=== PATIENT | female | born 1990 | race Caucasian/White ===

== ENCOUNTER → 2017-06-17 12:39 | Outpatient (CLI) | payer OTHER, SELFPAY ==
--- NOTE | 2017-06-17 12:43 | US_ITS ---
US transvaginal HISTORY: Heavy cycles, dysfunctional uterine bleeding ITS.REASON: Heavy bleeding ORDERING PHYSICIAN: Anthony Willett MD PATIENT AGE: 26 years COMPARISON: None FINDINGS: UTERUS: The uterus measures 7 x 5 x 5 cm with a combined endometrial thickness of 5 mm. Uterus is retroverted.. No obvious uterine mass. The left ovary is 2.7 x 2.9 similar is a contained small follicles. Blood flow is present. The right ovary is 3 x 2 cm containing small follicles with blood flow noted. Small amount of cul-de-sac fluid is present. IMPRESSION: Retroverted uterus. Small bilateral ovarian follicles with a small amount of cul-de-sac fluid. Otherwise negative pelvic ultrasound
[2017-06-17 14:31] LABS: Basophils # 0.1 K/mm3 (0-0.2); Basophils % 0.6 % (0.1-2.0); Eosinophils # 0.1 K/mm3 (0.0-0.4); Eosinophils % 1.3 % (0.1-12.0); Hematocrit 44.7 % (37.0-47.0); Hemoglobin 14.9 g/dL (12.2-16.2); Lymphocytes # 3.1 K/mm3 (0.7-4.5); Lymphocytes % 28.3 K/mm3 (10-50); Mean Corpuscular HGB Conc 33.3 g/dL (31.8-35.4); Mean Corpuscular Hemoglobin 30.9 pg (27.0-31.2); Mean Platelet Volume 8.2 fl (7.4-10.4); Monocytes # 0.5 K/mm3 (0.1-1.0); Monocytes % 4.8 % (1.7-9.3); Neutrophils # 7.1 K/mm3 (1.8-7.8); Platelet Count 338 K/mm3 (142-424); Red Cell Distribution Width 15.2 % (11.5-17.5); White Blood Count 10.9 K/mm3 (4.8-10.8)
[2017-06-17 14:58] LABS: Urine Pregnancy, HCG Qual. Negative (Negative)
[2017-06-17 15:47] LABS: Free Thyroxine Index 2.1 ug/dL (5.93-13.13); T4 (Thyroxine) 6.7 ug/dl (4.7-13.3); Thyroid Stimulating Hormone 2.21 uIU/ml (0.358-3.740); Triiodothryronine (T3) Uptake 31 % (31-39)
== END ==
PROVIDERS: Family Provider Physician Assistant; PCP Physician Assistant; Visit Provider Nurse Practitioner Obstetrics & Gynecology
DX: N92.0 Excessive and frequent menstruation with regular cycle (principal)
CPT/HCPCS: 36415; 76830; 81025; 84436; 84443; 84479; 85025

== ENCOUNTER → 2017-07-13 10:15 | Outpatient (CLI) | payer OTHER, SELFPAY ==
[2017-07-13 11:12] LABS: Basophils # 0.1 K/mm3 (0-0.2); Basophils % 0.5 % (0.1-2.0); Eosinophils # 0.1 K/mm3 (0.0-0.4); Eosinophils % 1.2 % (0.1-12.0); Hemoglobin 13.9 g/dL (12.2-16.2); Lymphocytes # 2.8 K/mm3 (0.7-4.5); Lymphocytes % 29.8 K/mm3 (10-50); Mean Corpuscular HGB Conc 32.5 g/dL (31.8-35.4); Mean Corpuscular Hemoglobin 31.1 pg (27.0-31.2); Mean Corpuscular Volume 95.9 fl (81-99); Mean Platelet Volume 8.4 fl (7.4-10.4); Monocytes # 0.5 K/mm3 (0.1-1.0); Monocytes % 5.8 % (1.7-9.3); Neutrophils # 5.9 K/mm3 (1.8-7.8); Neutrophils % 62.6 % (37.0-80.0); Platelet Count 308 K/mm3 (142-424); Red Blood Count 4.48 M/mm3 (4.20-5.40); Red Cell Distribution Width 15.2 % (11.5-17.5); White Blood Count 9.4 K/mm3 (4.8-10.8)
[2017-07-13 11:14] LABS: Anion Gap 11.6 mEq/L (5-15); Blood Urea Nitrogen 9 mg/dL (7-18); Carbon Dioxide 23 mmol/L (21.0-32.0); Chloride 107 mmol/L (98-107); Creatinine,Serum 0.72 mg/dL (0.55-1.02); Estimated Glomerular Filt Rate 99 ml/min (>60); GFR (African American) 119 ML/MIN (>60); Glucose 85 mg/dL (74-106); Potassium 3.6 mmoL/L (3.5-5.1); Sodium 138 mmol/L (136-145)
[2017-07-13 12:40] LABS: HCG Qualitative, Serum Negative (Negative)
== END ==
PROVIDERS: Visit Provider Nurse Practitioner Obstetrics & Gynecology
DX: Z01.812 Encounter for preprocedural laboratory examination (principal); N92.0 Excessive and frequent menstruation with regular cycle
CPT/HCPCS: 36415; 80048; 84703; 85025

== ENCOUNTER 2017-07-16 06:37 | Day surgery (SDC) | payer OTHER, SELFPAY ==
[2017-07-16] VITALS (10 sets, daily range): BP systolic 108–122; BP diastolic 60–77; PULSE 57–69; RESP 16–20; TEMP 36.5–36.8; O2SAT 93–98; BMI 40.8
[2017-07-16 08:09] LABS: POC Glucose,Bedside 84 mg/dL (70-110)
--- NOTE | 2017-07-16 09:29 | HMH.OPNOTE ---
Date of procedure: 07/16/17 Pre-op Diagnosis:: Menorrhagia Post-op Diagnosis:: Menorrhagia Procedure performed:: Hysteroscopy, dilation and curettage, NovaSure ablation Surgeon:: Anthony Willett MD ALL AROUND PATTERNMAKER:: Jamil Albarado Anesthesia: LMA Estimated blood loss (mL): 50 Clinical Note:: She is a 26-year-old 2 para 2 who complains of extremely heavy periods. She had an ultrasound that appeared normal. She had an endometrial biopsy that was negative for hyperplasia or endometrial carcinoma. After having discussed the risks and benefits she elected to have a NovaSure ablation. Operative findings:: She had a bulky anteverted uterus. The endometrial cavity sounded to 9 cm. The endometrium appeared normal but lush. Both tubal ostia were seen and appeared normal. The endometrial cavity was 6.0 cm long and 4.5 cm wide. Operative note:: She was taken to the operating room where LMA anesthesia was found to be adequate. She was prepped and draped in the normal sterile fashion in the lithotomy position. A weighted speculum was placed vagina and the anterior lip of the cervix was grasped with a tenaculum. Gongora dilators used to dilate the cervix to approximately 6-7 mm. I then inserted a hysteroscope into the uterine cavity using saline as distending media. The findings were as previously dictated. I then performed a gentle curettage. The uterus was sounded and found to be 9 cm I found the length of the endometrial cavity itself to be 6 cm. I then placed the NovaSure device within the uterine cavity and it was found to be 4.5 cm wide. These findings were placed in the device. I ran the device through its program. I then further inspected the immature cavity and was seen to be completely charred. I injected 20 cc of 0.5% ropivacaine at the 3:00, 5:00, 7:00, and 9:00 positions of the cervix. The patient tolerated the procedure well and was taken to the recovery room in excellent condition. All sponge and needle counts were correct. The estimate blood loss was less than 50 cc. Condition: stable Disposition: PACU Specimens:: Endometrial curettings Complications:: None
--- NOTE | 2017-07-16 09:41 | P.PN_ITS ---
[facility] Anesthesia Record Part I Intake, IV Amount: 450 Estimated blood loss (mL): 50 Urine output (mL): 50 Blood Products used (#): none Blood Pressure: 115/74 SaO2: 93 Pulse Rate: 66 Respiratory Rate: 18 Temperature: 98.0 F Patient is:: Awake, Stable Stable to PACU at:: 09:40
--- NOTE | 2017-07-16 09:41 | HMH.ANESII ---
[facility] Anesthesia Record Part II Discharge Time: 10:10 Destination: Surgical Day Care (OP Surgery) PACU nurse assessment reviewed?: Yes Patient Condition:: Good Anesthesia Complications:: None
== END 2017-07-16 11:00 | disposition home or self-care (01) ==
LOC: OR 06:38
PROVIDERS: Family Provider Physician Assistant; PCP Physician Assistant; Visit Provider Nurse Practitioner Obstetrics & Gynecology
PROC: 0U5B8ZZ Destruction of Endometrium, Via Natural or Artificial Opening Endoscopic (ICD-10-PCS; CPT 58563; principal; 2017-07-16 08:30)
DX: N92.0 Excessive and frequent menstruation with regular cycle (principal)
CPT/HCPCS: 58558; 82962; 96374; J0131; J2405

== ENCOUNTER → 2019-04-28 12:50 | Outpatient (CLI) | payer OTHER, SELFPAY ==
[2019-04-28 13:18] LABS: Basophils % 0.5 % (0.1-2.0); Eosinophils # 0.2 K/mm3 (0.0-0.4); Eosinophils % 2.9 % (0.1-12.0); Hematocrit 42.7 % (37.0-47.0); Hemoglobin 14.1 g/dL (12.2-16.2); Lymphocytes # 2.5 K/mm3 (0.7-4.5); Lymphocytes % 29.5 % (10-50); Mean Corpuscular Hemoglobin 31.4 pg (27.0-31.2); Mean Corpuscular Volume 95.2 fl (81-99); Mean Platelet Volume 8.4 fl (7.4-10.4); Monocytes # 0.3 K/mm3 (0.1-1.0); Monocytes % 4.1 % (1.7-9.3); Neutrophils # 5.3 K/mm3 (1.8-7.8); Neutrophils % 63.1 % (37.0-80.0); Platelet Count 331 K/mm3 (142-424); Red Blood Count 4.49 M/mm3 (4.20-5.40); Red Cell Distribution Width 13.8 % (11.5-17.5); White Blood Count 8.4 K/mm3 (4.8-10.8)
[2019-04-28 14:00] LABS: Anion Gap 15.9 mEq/L (5-15); Blood Urea Nitrogen 6 mg/dL (7-18); Calcium 8.7 mg/dL (8.5-10.1); Carbon Dioxide 24 mmol/L (21.0-32.0); Chloride 105 mmol/L (98-107); Creatinine,Serum 0.71 mg/dL (0.55-1.02); Estimated Glomerular Filt Rate 99 ml/min (>60); GFR (African American) 119 ML/MIN (>60); Glucose 77 mg/dL (74-106); Potassium 3.9 mmoL/L (3.5-5.1); Sodium 141 mmol/L (136-145)
== END ==
PROVIDERS: Visit Provider Surgery
DX: L73.2 Hidradenitis suppurativa (principal)
CPT/HCPCS: 36415; 80048; 85025

== ENCOUNTER 2020-02-09 16:55 | Emergency (ER) | payer OTHER, SELFPAY ==
[2020-02-09 17:23] VITALS: BP 128/70; PULSE 90; RESP 14; TEMP 37; O2SAT 100; BMI 37.0
--- NOTE | 2020-02-09 17:54 | HMH.EDUTC ---
[facility] [place] Disposition Clinical Impression: Hidradenitis suppurativa, Abscess of left axilla Disposition: Home, Self-Care Condition on Discharge: Good Instructions: Boil Additional Instructions: Keep the wounds clean and dry. Follow up with your regular doctor. Take the antibiotics as directed and apply the topical antibiotics as directed. GO TO THE ER FOR ANY WORSENING SYMPTOMS Prescriptions: Ibuprofen [Ibuprofen 600mg Tablet] 600 mg PO Q6HP PRN #30 tab PRN Reason: Mild Pain Transmission Status: Received by [facility] Mupirocin [Bactroban 2% Ointment 22gm tube] 1 applicatio TP TID 7 Days #1 tube Transmission Status: Received by [facility] Doxycycline Hyclate [Doxycycline 100mg Capsule] 100 mg PO Q12 10 Days #20 cap Transmission Status: Received by [facility] Referrals: Fay Villegas APRN [Primary Care Provider] - Forms: Work/School Release Time of Disposition: 17:58 Medical Decision Making - Medical Records Medical records reviewed: No: I reviewed the patient's medical records. - Edgar Inquiry Pt receiving controlled substance: No Vital Signs: 02/09/20 17:23 02/09/20 18:07 Temperature 98.6 F 98.6 F Temperature Source Oral Oral Pulse Rate 90 Pulse Rate [Radial] 90 Respiratory Rate 14 14 Blood Pressure 128/70 Blood Pressure [Right Arm] 128/70 Blood Pressure Mean [Right Arm] 89 Blood Pressure Source Automatic Cuff Blood Pressure Source [Right Arm] Automatic Cuff Blood Pressure Position Sitting Blood Pressure Position [Right Arm] Sitting 02 Sat by Pulse Oximetry 100 Oxygen Delivery Method Room Air Room Air [facility] [place] HPI - General Stated complaint: boils/abcesses on legs and arm pits Time Seen by Provider: 02/09/20 17:35 Mode of Arrival: Ambulatory Source of Information: Patient Limitations: No Limitations Description of Symptoms (Recalled from Triage Doc. by RN): has hidrandenitis on each side of groin and under the left arm. keene for the last 3 days HEENT Symptoms (Recalled from RN notes): No Resp Symptoms (Recalled from RN notes): No Skin Symptoms (Recalled from RN notes): Yes MS Symptoms (Recalled from RN notes): No Functional Status (Recalled from RN notes): wnl - History of Present Illness Provider Complaint: She has a history of suppartive hydrenitis. For the past several day days she has been having swelling and pain of her left underarm. - Related Data Previous Rx's Medication Instructions Recorded Ibuprofen [Ibuprofen 600mg 600 mg PO Q6HP PRN #30 tab 07/01/19 Tablet] Methocarbamol [Robaxin 500mg Tab] 500 mg PO BIDP PRN #30 tab 07/01/19 cephALEXin [Keflex 500mg Cap] 500 mg PO Q6H 10 Days #40 cap 07/01/19 Doxycycline Hyclate [Doxycycline 100 mg PO Q12 10 Days #20 cap 02/09/20 100mg Capsule] Ibuprofen [Ibuprofen 600mg 600 mg PO Q6HP PRN #30 tab 02/09/20 Tablet] Mupirocin [Bactroban 2% Ointment 1 applicatio TP TID 7 Days #1 tube 02/09/20 22gm tube] Allergies Allergy/AdvReac Type Severity Reaction Status Date / Time propranolol [From INDERAL LA] Allergy Mild Verified 05/01/19 07:01 latex [LATEX] Allergy Unknown Verified 05/01/19 07:01 nickel [NICKEL] Allergy Unknown Verified 05/01/19 07:01 topiramate [TOPIRAMATE] Allergy Unknown I-HIVES Verified 05/01/19 07:01 tramadol [TRAMADOL] Allergy Unknown Verified 05/01/19 07:01 amoxicillin Allergy Verified 05/01/19 07:01 Penicillins Allergy Verified 05/01/19 07:01 - Worker's Comp Is this a Worker's Comp case?: No [facility] History - Hepatitis A Screen Drug use history?: No High risk sexual behaviors?: No History of sexually transmitted infection?: No Currently employed?: No Childcare worker?: No Do you have indoor plumbing?: Yes Do you have electricity?: Yes Attestation statement:: This patient has been screened for Hepatitis A risk factors. I have reviewed the patient's past medical history: Yes Medical History: Reports:: Alonzo
[2020-02-09 18:07] VITALS: BP 128/70; PULSE 90; RESP 14; TEMP 37; O2SAT 100
== END 2020-02-09 18:08 | disposition home or self-care (01) ==
PROVIDERS: Emergency Provider Nurse Practitioner Family; PCP Nurse Practitioner Family
DX: L02.412 Cutaneous abscess of left axilla (principal); L72.3 Sebaceous cyst; F33.1 Major depressive disorder, recurrent, moderate; E11.9 Type 2 diabetes mellitus without complications; G43.709 Chronic migraine without aura, not intractable, without status migrainosus; F17.210 Nicotine dependence, cigarettes, uncomplicated
CPT/HCPCS: 99201

== ENCOUNTER 2020-06-13 11:50 | Emergency (ER) | payer OTHER, SELFPAY ==
--- NOTE | 2020-06-13 12:06 | HMH.EDUTC ---
[facility] [place] Disposition Clinical Impression: Strep throat, Bronchitis Disposition: Home, Self-Care Condition on Discharge: Good Instructions: Strep Throat, DI for Strep Throat, DI for Acute Bronchitis Additional Instructions: Drink plenty of fluids. Take the medications as directed. Take tylenol or ibuprofen for pain or fever. Throw your tooth brush away and get a new one. Follow up with your regular doctor. GO TO THE ER FOR ANY WORSENING SYMPTOMS The cough medication (promethazine dm) will make you drowsy, so don't drive or operate heavy machinery after taking it. Prescriptions: Promethazine/Dextromethorphan [Promethazine-Dm Syrup] 5 ml PO Q6HP PRN #240 syrup PRN Reason: Cough Transmission Status: Received by [facility] clindamycin HCL [Clindamycin HCl] 300 mg PO Q8H 10 Days #30 cap Transmission Status: Received by [facility] Referrals: Fay Villegas APRN [Primary Care Provider] - Forms: Work/School Release Time of Disposition: 12:25 Medical Decision Making - Medical Records Medical records reviewed: No: I reviewed the patient's medical records. - Edgar Inquiry Pt receiving controlled substance: No Vital Signs: 06/13/20 12:09 06/13/20 12:30 Temperature 97.3 F L 97.3 F L Temperature Source Oral Pulse Rate 94 H Pulse Rate [Right Brachial] 94 H Respiratory Rate 14 14 Blood Pressure 124/52 L Blood Pressure [Right Arm] 124/52 L Blood Pressure Mean [Right Arm] 76 Blood Pressure Source [Right Arm] Automatic Cuff Blood Pressure Position [Right Arm] Sitting 02 Sat by Pulse Oximetry 96 Oxygen Delivery Method Room Air - Lab Data Lab results reviewed: Yes: I reviewed the patient's lab results. Lab Results 06/13/20 12:08: Strep Scn Rapid Clinic Positive A [facility] [place] HPI - General Stated complaint: headache,chills,fever,body aches,sore throat Time Seen by Provider: 06/13/20 12:07 - History of Present Illness Provider Complaint: She s/o sore throat, low grade fever, chills and feeling bad for the past 2 days. She works at a residential. She was last tested for covid yesterday evening and it was negative. She gets tested for covid twice per week regularly for her job anyway. - Related Data Previous Rx's Medication Instructions Recorded Ibuprofen [Ibuprofen 600mg 600 mg PO Q6HP PRN #30 tab 07/01/19 Tablet] Methocarbamol [Robaxin 500mg Tab] 500 mg PO BIDP PRN #30 tab 07/01/19 cephALEXin [Keflex 500mg Cap] 500 mg PO Q6H 10 Days #40 cap 07/01/19 Doxycycline Hyclate [Doxycycline 100 mg PO Q12 10 Days #20 cap 02/09/20 100mg Capsule] Ibuprofen [Ibuprofen 600mg 600 mg PO Q6HP PRN #30 tab 02/09/20 Tablet] Mupirocin [Bactroban 2% Ointment 1 applicatio TP TID 7 Days #1 tube 02/09/20 22gm tube] Promethazine/Dextromethorphan 5 ml PO Q6HP PRN #240 syrup 06/13/20 [Promethazine-Dm Syrup] clindamycin HCL [Clindamycin HCl] 300 mg PO Q8H 10 Days #30 cap 06/13/20 Allergies Allergy/AdvReac Type Severity Reaction Status Date / Time propranolol [From INDERAL LA] Allergy Mild Verified 05/01/19 07:01 latex [LATEX] Allergy Unknown Verified 05/01/19 07:01 nickel [NICKEL] Allergy Unknown Verified 05/01/19 07:01 topiramate [TOPIRAMATE] Allergy Unknown I-HIVES Verified 05/01/19 07:01 tramadol [TRAMADOL] Allergy Unknown Verified 05/01/19 07:01 amoxicillin Allergy Verified 05/01/19 07:01 Penicillins Allergy Verified 05/01/19 07:01 [facility] History - Hepatitis A Screen Attestation statement:: This patient has been screened for Hepatitis A risk factors. I have reviewed the patient's past medical history: Yes Medical History: Reports:: Depression, Diabetes Mellitus Type 1, Diabetes Mellitus Type 2, Migraine Denies:: Cancer, Internal Pacemaker, MRSA, Seizures Other Medical History: Denies: Blood Transfusion Reaction Laterality Cases: Bilateral: Tonsillectomy, Total Hip Replacement Other Surgeries: Yes: , Tubal Ligation,
[2020-06-13 12:09] VITALS: BP 124/52; PULSE 94; RESP 14; TEMP 36.3; O2SAT 96; BMI 37.5
[2020-06-13 12:29] LABS: UTC Strep Screen (Rapid) Positive (Negative)
[2020-06-13 12:30] VITALS: BP 124/52; PULSE 94; RESP 14; TEMP 36.3; O2SAT 96
== END 2020-06-13 12:33 | disposition home or self-care (01) ==
PROVIDERS: Emergency Provider Nurse Practitioner Family; PCP Nurse Practitioner Family
DX: J02.0 Streptococcal pharyngitis (principal); J40 Bronchitis, not specified as acute or chronic
CPT/HCPCS: 87880; 99202; G0463

== ENCOUNTER 2020-06-16 12:17 | Emergency (ER) | payer OTHER, SELFPAY ==
[2020-06-16 12:20] VITALS: BP 103/71; PULSE 91; RESP 19; TEMP 36.8; O2SAT 98; BMI 37.5
[2020-06-16 13:01] VITALS: BP 103/71; PULSE 91; RESP 19; TEMP 36.8; O2SAT 98
--- NOTE | 2020-06-16 13:05 | HMH.EDUTC ---
[facility] [place] Disposition Clinical Impression: Upper respiratory infection, viral, Exposure to COVID-19 virus Disposition: Home, Self-Care Condition on Discharge: Good Instructions: DI for COVID-19 (Suspected or Confirmed ), How to Care for Someone with COVID-19, Preventing the Spread of Coronavirus Discharge Instructions, COVID-19: Testing and Tracing Additional Instructions: No sign of a bacterial infection. Likely viral. Viruses can take 7-14 days to run their course. Nasal saline and bulb syringe or nose Zoë to remove nasal drainage to help with nasal congestion. Hard to eat, drink, sleep with nasal congestion so important to keep this cleaned out. Monitor temp. Tylenol or Motrin as needed for pain or fever Encourage fluids, water, Gatorade, Powerade, Pedialyte if infant/toddler/child Warm salt water gargles Warm fluids Sore throat lozenges Sleep elevated Humidifier/vaporizer Your covid swab was sent. self isolate until test results are known to be neg Follow-up immediately for new or worsening symptoms or no noticeable improvement over the next 48-72 hours. Referrals: Fay Villegas APRN [Primary Care Provider] - Forms: Work/School Release Time of Disposition: 13:09 Medical Decision Making - Edgar Inquiry Pt receiving controlled substance: No Vital Signs: 06/16/20 12:20 06/16/20 13:01 Temperature 98.2 F 98.2 F Temperature Source Oral Pulse Rate 91 H Pulse Rate [Right Brachial] 91 H Respiratory Rate 19 19 Blood Pressure 103/71 L Blood Pressure [Right Arm] 103/71 L Blood Pressure Mean [Right Arm] 81 Blood Pressure Source [Right Arm] Automatic Cuff Blood Pressure Position [Right Arm] Sitting 02 Sat by Pulse Oximetry 98 Oxygen Delivery Method Room Air Orders (Tests/Meds): ORDERS Category Date Time Status Covid-19 Nasal PCR ([facility]) Routine Lab 06/16/20 12:20 Ordered [facility] [place] HPI - General Chief complaint: [facility] Stated complaint: covid test Time Seen by Provider: 06/16/20 13:05 Mode of Arrival: Ambulatory Source of Information: Patient Limitations: No Limitations Description of Symptoms (Recalled from Triage Doc. by RN): COVID TEST D/T EXPOSURE. C/O LOSS OF TASTE/SMELL, SORE THROAT, COUGH HEENT Symptoms (Recalled from RN notes): Yes Resp Symptoms (Recalled from RN notes): Yes Skin Symptoms (Recalled from RN notes): No MS Symptoms (Recalled from RN notes): No Functional Status (Recalled from RN notes): WNL - History of Present Illness Provider Complaint: 29 yr old female presents for cough,low grade fever, body aches,chills,loss of taste and smell and runny nose for 2 days. pt states she was exposed to someone with covid 3 days ago. - Related Data Previous Rx's Medication Instructions Recorded Ibuprofen [Ibuprofen 600mg 600 mg PO Q6HP PRN #30 tab 07/01/19 Tablet] Methocarbamol [Robaxin 500mg Tab] 500 mg PO BIDP PRN #30 tab 07/01/19 cephALEXin [Keflex 500mg Cap] 500 mg PO Q6H 10 Days #40 cap 07/01/19 Doxycycline Hyclate [Doxycycline 100 mg PO Q12 10 Days #20 cap 02/09/20 100mg Capsule] Ibuprofen [Ibuprofen 600mg 600 mg PO Q6HP PRN #30 tab 02/09/20 Tablet] Mupirocin [Bactroban 2% Ointment 1 applicatio TP TID 7 Days #1 tube 02/09/20 22gm tube] Promethazine/Dextromethorphan 5 ml PO Q6HP PRN #240 syrup 06/13/20 [Promethazine-Dm Syrup] clindamycin HCL [Clindamycin HCl] 300 mg PO Q8H 10 Days #30 cap 06/13/20 Allergies Allergy/AdvReac Type Severity Reaction Status Date / Time propranolol [From INDERAL LA] Allergy Mild Verified 05/01/19 07:01 latex [LATEX] Allergy Unknown Verified 05/01/19 07:01 nickel [NICKEL] Allergy Unknown Verified 05/01/19 07:01 topiramate [TOPIRAMATE] Allergy Unknown I-HIVES Verified 05/01/19 07:01 tramadol [TRAMADOL] Allergy Unknown Verified 05/01/19 07:01 amoxicillin Allergy Verified 05/01/19 07:01 Penicillins Allergy Verified 05/01/19 07:01 - Worker's Comp Is this a Worker's Comp case?: No
--- NOTE | 2020-06-16 20:00 | PC.NURSE ---
PT NOTIFIED OF POSITIVE COVID RESULTS
== END 2020-06-16 13:15 | disposition home or self-care (01) ==
PROVIDERS: Emergency Provider Nurse Practitioner Family; PCP Nurse Practitioner Family
DX: U07.1 COVID-19 (principal); E10.9 Type 1 diabetes mellitus without complications; F33.1 Major depressive disorder, recurrent, moderate; G43.709 Chronic migraine without aura, not intractable, without status migrainosus; F17.210 Nicotine dependence, cigarettes, uncomplicated; F12.10 Cannabis abuse, uncomplicated; Z79.899 Other long term (current) drug therapy
CPT/HCPCS: 99202; G0463; U0003

== ENCOUNTER 2020-08-26 16:05 | Emergency (ER) | payer OTHER, SELFPAY ==
[2020-08-26 16:06] VITALS: BP 131/76; PULSE 98; RESP 18; TEMP 36.8; O2SAT 98; BMI 37.0
--- NOTE | 2020-08-26 16:10 | HMH.EDGENADL ---
ED Disposition Clinical Impression: Hidradenitis suppurativa Disposition: Home, Self-Care Condition on Discharge: Good Additional Instructions: Take [place] for breakthrough pain only. Do not operate heavy machinery or drink alcohol taking this medicine. Please call surgery office tomorrow to make an appointment for soon as possible. Return if any worsening rash, fever/chills, generalized malaise, nausea/vomiting, or other new concerning symptoms. Prescriptions: Hydrocod/Acet 5/325 mg [[place] 5/325mg tablet] 1 tab PO Q6HP PRN #12 tab PRN Reason: Breakthru Severe Pain Transmission Status: Sent to [facility] Referrals: Fay Villegas APRN [Primary Care Provider] - - Critical Care Critical Care Time: No Attestation: On , the high probability of a clinically significant, sudden or life threatening deterioration of the following system(s) required my full and direct attention, intervention and personal management. The time I documented below is in addition to time spent performing reported procedures but includes the following listed in this critical care notation. Medical Decision Making - Medical Records Medical records reviewed: Yes: I reviewed the patient's medical records. - Edgar Inquiry Pt receiving controlled substance: Yes Edgar was queried for this patient: Yes Reference #:: [id number] Risks and benefits of using a controlled substance: were discussed with pt by me Vital Signs: 08/26/20 16:06 Temperature 98.3 F Temperature Source Oral Pulse Rate [Left Radial] 98 H Respiratory Rate 18 Blood Pressure [Right Arm] 131/76 Blood Pressure Mean [Right Arm] 94 Blood Pressure Source [Right Arm] Automatic Cuff Blood Pressure Position [Right Arm] Sitting 02 Sat by Pulse Oximetry 98 Oxygen Delivery Method Room Air - Lab Data Lab Results 08/26/20 17:40: WBC 11.4 H, RBC 4.24, Hgb 12.8, Hct 39.4, MCV 93.0, MCH 30.1, MCHC 32.4, RDW 14.6, Plt Count 345, MPV 8.0, Neut % (Auto) 72.6, Lymph % (Auto) 20.0, Jasper % (Auto) 5.2, Eos % (Auto) 1.6, Baso % (Auto) 0.5, Neut # (Auto) 8.3 H, Lymph # (Auto) 2.3, Jasper # (Auto) 0.6, Eos # (Auto) 0.2, Baso # (Auto) 0.1 08/26/20 17:40: Sodium 137, Potassium 3.8, Chloride 108 H, Carbon Dioxide 21 L, Anion Gap 11.8, BUN 12, Creatinine 0.50 L, Estimated Creat Clear 228, Estimated GFR 147, Est GFR ( Amer) 178, Glucose 94, Calcium 9.1, Total Bilirubin 0.3, AST 20, ALT 17, Alkaline Phosphatase 72, C-Reactive Protein 45.2 H, Total Protein 7.7, Albumin 4.1, Globulin 3.6 H, Albumin/Globulin Ratio 1.1 Result diagrams: 08/26/20 17:40 08/26/20 17:40 Orders (Tests/Meds): ED MEDICATIONS Discontinued Medications Generic Name Dose Route Start Last Admin Trade Name Freq PRN Reason Stop Dose Admin Hydrocodone Bitart/Acetaminophen 1 tab 08/26/20 17:33 08/26/20 17:40 Hydrocodone/Apap 5/325 Mg Tablet PO 08/26/20 17:34 1 tab ONCE ONE Administration Medical Decision Narrative: Patient presents to the emergency department with hidradenitis. She already is on p.o. clindamycin. Work-up initiated to ensure significantly elevated white count. White count 11,000. Patient given [place] for pain. I am concerned the patient has extensive hidradenitis and the risks involved with I&D in the ER. She may require excision and extensive unroofing in a more controlled environment. Did reach out to on-call surgeon, Dr. Peres. After careful discussion, plan for patient be discharged on short course of [place] made and she will call tomorrow morning to make an appointment by the end of the week for further management. Patient seems pleased with this plan. Patient discharged in stable condition with instructions not to operate heavy machinery or drink alcohol while taking pain medicine and to immediately report back to emergency department if worsening hidradenitis, fever/chills, systemic signs of illness, generalized malaise, nausea/vomiting, other new concerning symptoms
[2020-08-26 17:56] LABS: Basophils # 0.1 K/mm3 (0-0.2); Basophils % 0.5 % (0.1-2.0); Eosinophils # 0.2 K/mm3 (0.0-0.4); Eosinophils % 1.6 % (0.1-12.0); Hematocrit 39.4 % (37.0-47.0); Hemoglobin 12.8 g/dL (12.2-16.2); Lymphocytes # 2.3 K/mm3 (0.7-4.5); Mean Corpuscular HGB Conc 32.4 g/dL (31.8-35.4); Mean Corpuscular Hemoglobin 30.1 pg (27.0-31.2); Monocytes # 0.6 K/mm3 (0.1-1.0); Monocytes % 5.2 % (1.7-9.3); Neutrophils # 8.3 K/mm3 (1.8-7.8); Neutrophils % 72.6 % (37.0-80.0); Platelet Count 345 K/mm3 (142-424); Red Blood Count 4.24 M/mm3 (4.20-5.40); Red Cell Distribution Width 14.6 % (11.5-17.5); White Blood Count 11.4 K/mm3 (4.8-10.8)
[2020-08-26 18:01] LABS: Chloride 108 mmol/L (98-107); Potassium 3.8 mmoL/L (3.5-5.1); Sodium 137 mmol/L (136-145)
[2020-08-26 18:04] LABS: Alanine Aminotransferase 17 U/L (12-78); Albumin Level 4.1 g/dl (3.5-5.0); Albumin/Globulin Ratio 1.1 (1.1-1.8); Alkaline Phosphatase 72 U/L (38-126); Anion Gap 11.8 mEq/L (5-15); Aspartate Amino Transferase 20 U/L (14-36); Bilirubin,Total 0.3 mg/dl (0.2-1.3); Blood Urea Nitrogen 12 mg/dl (7-17); Carbon Dioxide 21 mmol/L (22.0-30.0); Creatinine Clearance Estimated 228 mL/min (50-200); Estimated Glomerular Filt Rate 147 ml/min (>60); GFR (African American) 178 ML/MIN (>60); Globulin 3.6 g/dL (1.3-3.2); Total Protein,Serum 7.7 g/dl (6.3-8.2)
[2020-08-26 18:05] LABS: Calcium 9.1 mg/dl (8.4-10.2); Glucose 94 mg/dl (74-100)
[2020-08-26 18:10] LABS: C-Reactive Protein 45.2 mg/L (0-4)
[2020-08-26 18:56] VITALS: BP 127/70; PULSE 93; RESP 18; TEMP 36.8; O2SAT 96
== END 2020-08-26 18:56 | disposition home or self-care (01) ==
PROVIDERS: Emergency Provider Emergency Medicine; PCP Nurse Practitioner Family
DX: L73.2 Hidradenitis suppurativa (principal); E10.9 Type 1 diabetes mellitus without complications; F33.1 Major depressive disorder, recurrent, moderate; G43.709 Chronic migraine without aura, not intractable, without status migrainosus; Z91.040 Latex allergy status; F17.210 Nicotine dependence, cigarettes, uncomplicated; F12.10 Cannabis abuse, uncomplicated; Z88.0 Allergy status to penicillin; Z88.8 Allergy status to other drugs, medicaments and biological substances; Z79.899 Other long term (current) drug therapy
CPT/HCPCS: 36415; 80053; 85025; 86140; 99282

== ENCOUNTER → 2020-08-28 15:14 | Outpatient (CLI) | payer OTHER, SELFPAY ==
[2020-08-28 15:54] LABS: Urine Pregnancy, HCG Qual. Negative (Negative)
[2020-08-28 16:41] LABS: Coronavirus 19 IgG Antibody Positive (Negative); Coronavirus 19 IgM Antibody Negative (Negative)
== END ==
PROVIDERS: Visit Provider Surgery
DX: Z01.812 Encounter for preprocedural laboratory examination (principal); Z20.822 Contact with and (suspected) exposure to COVID-19; L73.2 Hidradenitis suppurativa
CPT/HCPCS: 36415; 81025; 86328

== ENCOUNTER 2020-08-29 10:46 | Day surgery (SDC) | payer OTHER, SELFPAY ==
[2020-08-29] VITALS (10 sets, daily range): BP systolic 103–137; BP diastolic 67–87; PULSE 86–95; RESP 14–20; TEMP 36–36.8; O2SAT 92–99; BMI 42.7
[2020-08-29 11:23] LABS: POC Glucose,Bedside 79 (70-110)
--- NOTE | 2020-08-29 11:52 | P.PN_ITS ---
[facility] Anesthesia Checklist - Patient Identification Patient Identification: Arm Band - Structural Data Admitted From: Home Planned Operative Procedure/s: I & D left thigh abscess Consent for Planned Operative Procedure(s) Verified: Yes - NPO Status Verified Time NPO: 00:00 - Additional verifications Anesthesia Reactions: Yes (PT STATES SHE HAS A HARD TIME WAKING UP FROM ANETHEISA) Hx Blood Transfusions: No Blood Transfusion Reaction: No - Airway Assessment C-Spine Mobility Assessed: Yes TMJ Mobility Assessed: Yes Dentition: Good Dentition - Neurological Assessment Level of Consciousness: Awake, Alert Hx Seizures: No Numbness or tingling in extremities: No - Anesthesia Plan Anesthesia Risk discussed: Yes Anesthesia Plan: Verified ASA Class: III Anesthesia Type: General [facility] History I have reviewed the patient's past medical history: Yes Medical History: Reports:: Depression, Diabetes Mellitus Type 2, Migraine Denies:: Cancer, Diabetes Mellitus Type 1, Internal Pacemaker, MRSA, Seizures *Have you ever received a pneumonia vaccine?: No *Have you received a flu vaccine this season?: Yes Other Medical History: Denies: Blood Transfusion Reaction Anesthesia experience/problems:: Difficulty waking up Laterality Cases: Bilateral: Myringotomy (Ear Tubes), Tonsillectomy, Total Hip Replacement Other Surgeries: Yes: , Tubal Ligation, Other. No: Pacemaker Amputation: No Fractures: Yes (RIGHT FOOT, LEFT FOOT, 2 FINGERS LEFT HAND) - *Social History Last grade of school completed: 11th or 12th Smoking Status: Current every day smoker Tobacco Type: cigarettes # Packs/Day (cigarettes): 1 Alcohol Intake: never Substance Use Type: marijuana *Occupational Status:: other Housing: house Household Members: significant other *Travel in the last 8 weeks: None - Psychiatric History Pschychiatric History:: Reports:: Depression Family Hx:: Cancer, Diabetes, Heart Attack, Hyperlipidemia, Hypertension [employer] COUNTER MANAGER history: Tubal Ligation, Abnormal Uterine Bleeding
--- NOTE | 2020-08-29 12:16 | P.PN_ITS ---
[facility] Anesthesia Record Part I Intake, IV Amount: 350 Estimated blood loss (mL): 0 Urine output (mL): 0 Blood Pressure: 122/70 SaO2: 92 Pulse Rate: 87 Respiratory Rate: 14 Temperature: 97.8 F Patient is:: Drowsy, Oral/Nasal airway Stable to PACU at:: 12:14
--- NOTE | 2020-08-29 12:16 | HMH.OPNOTE ---
Date of procedure: 08/29/20 Pre-op Diagnosis:: Left medial thigh abscessed hidradenitis Post-op Diagnosis:: Bilateral medial thigh abscessed hidradenitis Procedure performed:: Incision and drainage of bilateral medial thigh abscesses (abscessed hidradenitis) Surgeon:: Hong Locke MD Anesthesia: LMA Estimated blood loss (mL): 15 Operative findings:: Bilateral medial thigh abscesses at site of hidradenitis Operative note:: After informed consent was obtained the patient was taken to the operating room placed in the supine position. General anesthesia was induced and she was then transferred to a modified frog-leg position . Her bilateral thighs were prepped and draped in a sterile fashion. The central portion of the left medial thigh abscess was opened with electrocautery. Fluid was obtained for Gram stain/culture. The fluid was notably cloudy. The central portion of the lesion was then excised through the subcutaneous tissue utilizing electrocautery. The tissue was passed off for pathologic evaluation. The wound was fully evacuated and packed with moistened Kerlix. Essentially, the same procedure was then completed on the right. 1% lidocaine was infiltrated into the Kerlix and dressings were applied. The patient was then transferred to recovery in stable condition after removal of her laryngeal mask airway. Condition: stable Disposition: PACU Specimens:: Fluid for Gram stain/culture (left medial thigh abscess) Abscessed hidradenitis tissue (left medial thigh) Complications:: No immediate
--- NOTE | 2020-08-29 12:23 | SUR.PREOP ---
1145- per Dr. Locke as discussed with patient in pre-op, MD made decision to do I/D of right thigh abscess as well as planned procedure on left thigh. Discussed with family who also acknowledged patient desire to have abscess drained on right thigh, consent witnessed to that effect.
[2020-08-29 12:44] LABS: POC Glucose,Bedside 84 (70-110)
--- NOTE | 2020-08-30 11:24 | P.PN_ITS ---
[facility] Anesthesia Record Part II Discharge Time: 12:54 Destination: Surgical Day Care (OP Surgery) PACU nurse assessment reviewed?: Yes Patient Condition:: Good Anesthesia Complications:: None Swallowing reflex intact?: Yes Cyanosis?: No Blood Pressure: 136/87 Pulse Rate: 86 Temperature: 97.7 F Mental Status: Alert & Oriented Pain level:: 6 Nausea and/or vomitting:: None Intake, IV Amount: 0
[2020-08-30 11:25] VITALS: BP 136/87; PULSE 86; TEMP 36.5
== END 2020-08-29 13:30 | disposition home or self-care (01) ==
LOC: OR 10:48
PROVIDERS: PCP Nurse Practitioner Family; Visit Provider Surgery
PROC: (CPT 10061; principal; 2020-08-29 12:30)
DX: L73.2 Hidradenitis suppurativa (principal); L02.416 Cutaneous abscess of left lower limb; E11.9 Type 2 diabetes mellitus without complications; F32.9 Major depressive disorder, single episode, unspecified; G43.909 Migraine, unspecified, not intractable, without status migrainosus; Z87.39 Personal history of other diseases of the musculoskeletal system and connective tissue; Z72.0 Tobacco use; Z80.9 Family history of malignant neoplasm, unspecified; Z83.3 Family history of diabetes mellitus; Z82.3 Family history of stroke; Z82.49 Family history of ischemic heart disease and other diseases of the circulatory system; Z83.438 Family history of other disorder of lipoprotein metabolism and other lipidemia
CPT/HCPCS: 10061; 82962; 87070; 87075; 87205; 96374

== ENCOUNTER → 2020-09-04 15:44 | Outpatient (CLI) | payer OTHER, SELFPAY ==
[2020-09-04 16:23] LABS: Urine Pregnancy, HCG Qual. Negative (Negative)
[2020-09-04 16:54] LABS: Coronavirus 19 IgG Antibody Positive (Negative); Coronavirus 19 IgM Antibody Negative (Negative)
== END ==
PROVIDERS: Visit Provider Surgery
DX: Z01.818 Encounter for other preprocedural examination (principal); Z20.822 Contact with and (suspected) exposure to COVID-19; L73.2 Hidradenitis suppurativa
CPT/HCPCS: 36415; 81025; 86328

== ENCOUNTER 2020-09-05 06:09 | Day surgery (SDC) | payer OTHER, SELFPAY ==
[2020-09-04 16:04] VITALS: BMI 43.0
[2020-09-05] VITALS (9 sets, daily range): BP systolic 123–135; BP diastolic 78–88; PULSE 72–99; RESP 16–19; TEMP 36.1–37.1; O2SAT 93–99
--- NOTE | 2020-09-05 06:25 | PC.NURSE ---
Bilateral groin dressing from surgery last week
[2020-09-05 07:58] LABS: POC Glucose,Bedside 103 (70-110)
--- NOTE | 2020-09-05 07:59 | HMH.OPNOTE ---
Date of procedure: 09/05/20 Pre-op Diagnosis:: Left axillary hidradenitis with associated abscess Post-op Diagnosis:: Same Procedure performed:: Incision and drainage/debridement of left axillary hidradenitis with abscess Surgeon:: Hong Locke MD Anesthesia: LMA Estimated blood loss (mL): 10 Operative findings:: Inflamed hidradenitis with small associated abscess Operative note:: After informed consent was obtained the patient was taken to the operating room and placed in the supine position. General anesthesia with laryngeal mask airway was achieved. Her left axilla was prepped and draped in a sterile fashion. After infiltration with local anesthetic an incision around the inflamed hidradenitis was made with electrocautery. The deep subcutaneous tissue was dissected with electrocautery. An ellipse of tissue was excised and passed off for pathologic evaluation. A small associated abscess was noted within the margin of the tissue. Electrocautery was utilized to achieve hemostasis. The wound was partially closed with interrupted 4-0 nylon. The posterior margin was left open for packing. The wound was packed with moistened Kerlix and the entire region was infiltrated with 1% lidocaine. Dressings were applied and the patient was transferred to recovery after removal of her laryngeal mask airway. Condition: stable Disposition: PACU Specimens:: Left axillary hidradenitis Complications:: No immediate
--- NOTE | 2020-09-05 10:12 | HMH.ANESCL ---
[facility] Anesthesia Checklist - Patient Identification Patient Identification: Arm Band - Structural Data Admitted From: Home Planned Operative Procedure/s: I & D left axilla Consent for Planned Operative Procedure(s) Verified: Yes Verified Documents: Surgical Consent, History and Physical - Additional verifications Anesthesia Reactions: Yes (PT STATES SHE HAS A HARD TIME WAKING UP FROM ANETHEISA) Hx Blood Transfusions: No Blood Transfusion Reaction: No - Anesthesia Plan Anesthesia Risk discussed: Yes Anesthesia Plan: Verified ASA Class: III Anesthesia Type: General [facility] History Medical History: Reports:: Depression, Diabetes Mellitus Type 2, Migraine Denies:: Cancer, Diabetes Mellitus Type 1, Internal Pacemaker, MRSA, Seizures *Have you ever received a pneumonia vaccine?: No *Have you received a flu vaccine this season?: Yes Other Medical History: Denies: Blood Transfusion Reaction Anesthesia experience/problems:: None Laterality Cases: Bilateral: Myringotomy (Ear Tubes), Tonsillectomy, Total Hip Replacement Other Surgeries: Yes: , Tubal Ligation, Other. No: Pacemaker Amputation: No Fractures: Yes (RIGHT FOOT, LEFT FOOT, 2 FINGERS LEFT HAND) - *Social History Last grade of school completed: High school graduate Smoking Status: Current every day smoker Tobacco Type: cigarettes # Packs/Day (cigarettes): 1 Alcohol Intake: never Substance Use Type: marijuana *Occupational Status:: employed Housing: house Household Members: significant other, family *Travel in the last 8 weeks: None - Psychiatric History Pschychiatric History:: Reports:: Depression Family Hx:: Cancer, Diabetes, Heart Attack, Hyperlipidemia, Hypertension [employer] history: Tubal Ligation, Abnormal Uterine Bleeding
--- NOTE | 2020-09-05 10:15 | HMH.ANESI ---
[facility] Anesthesia Record Part I Intake, IV Amount: 500 Estimated blood loss (mL): 2 Urine output (mL): 0 Blood Pressure: 123/87 SaO2: 93 Pulse Rate: 99 Respiratory Rate: 19 Temperature: 98.8 F Patient is:: Awake, Drowsy Stable to PACU at:: 07:51
[2020-09-05 12:04] LABS: POC Glucose,Bedside 88 (70-110)
[2020-09-09 08:36] VITALS: BP 133/86; PULSE 72; TEMP 36.8
--- NOTE | 2020-09-09 08:36 | P.PN_ITS ---
[facility] Anesthesia Record Part II Discharge Time: 08:11 Destination: Surgical Day Care (OP Surgery) PACU nurse assessment reviewed?: Yes Patient Condition:: Good Anesthesia Complications:: None Swallowing reflex intact?: Yes Cyanosis?: No Blood Pressure: 133/86 Pulse Rate: 72 Temperature: 98.3 F Mental Status: Alert & Oriented Pain level:: 4 Nausea and/or vomitting:: None Intake, IV Amount: 0
== END 2020-09-05 08:41 | disposition home or self-care (01) ==
LOC: OR 06:09
PROVIDERS: PCP Nurse Practitioner Family; Visit Provider Surgery
PROC: (CPT 10061; principal; 2020-09-05 07:00)
DX: L73.2 Hidradenitis suppurativa (principal); L02.412 Cutaneous abscess of left axilla; F32.9 Major depressive disorder, single episode, unspecified; E11.9 Type 2 diabetes mellitus without complications; G43.909 Migraine, unspecified, not intractable, without status migrainosus; Z72.0 Tobacco use; F12.90 Cannabis use, unspecified, uncomplicated; Z79.84 Long term (current) use of oral hypoglycemic drugs; Z79.899 Other long term (current) drug therapy; Z88.1 Allergy status to other antibiotic agents; Z91.040 Latex allergy status; Z88.0 Allergy status to penicillin; Z88.8 Allergy status to other drugs, medicaments and biological substances; Z91.048 Other nonmedicinal substance allergy status
CPT/HCPCS: 10061; 82962; 96374; J2405

== ENCOUNTER → 2020-09-25 13:45 | Outpatient (CLI) | payer OTHER, SELFPAY ==
[2020-09-25 14:38] LABS: Urine Pregnancy, HCG Qual. Negative (Negative)
== END ==
PROVIDERS: Visit Provider Surgery
DX: Z01.812 Encounter for preprocedural laboratory examination (principal); Z11.52 Encounter for screening for COVID-19; L73.2 Hidradenitis suppurativa
CPT/HCPCS: 81025; U0003

== ENCOUNTER 2020-09-27 06:27 | Day surgery (SDC) | payer OTHER, SELFPAY ==
[2020-09-27] VITALS (14 sets, daily range): BP systolic 105–130; BP diastolic 61–81; PULSE 66–86; RESP 17–20; TEMP 36.1–36.4; O2SAT 94–98; BMI 37.5
--- NOTE | 2020-09-27 08:33 | HMH.OPNOTE ---
Date of procedure: 09/27/20 Pre-op Diagnosis:: Right perianal/medial buttock abscess (abscessed hidradenitis) Post-op Diagnosis:: Same Procedure performed:: Excision of abscessed hidradenitis from right perianal region Surgeon:: Hong Locke MD Anesthesia: LMA Estimated blood loss (mL): 10 Operative findings:: Firm right perianal/medial buttock indurated lesion consistent with abscessed hidradenitis Operative note:: After informed consent was obtained the patient was taken to the operating room and placed in the supine position. General anesthesia with laryngeal mask airway was achieved. She was transferred to a modified lithotomy position. The right perianal lesion showed changes consistent with hidradenitis/abscess. Significant induration noted. The lesion was carefully elevated and excised with electrocautery. It was passed off for pathologic evaluation. The remaining wound was packed open with gauze. The entire region was infiltrated with 1% lidocaine. Dressings were applied and the patient was transferred to recovery in stable condition. Condition: stable Disposition: PACU Specimens:: Right perianal abscessed hidradenitis Complications:: No immediate
--- NOTE | 2020-09-27 08:42 | HMH.ANESI ---
[facility] Anesthesia Record Part I Intake, IV Amount: 900 Estimated blood loss (mL): 10 Urine output (mL): 0 Blood Pressure: 124/81 SaO2: 98 Pulse Rate: 71 Respiratory Rate: 17 Temperature: 97.2 F Patient is:: Drowsy, Oral/Nasal airway Stable to PACU at:: 08:40
[2020-09-27 09:22] LABS: POC Glucose,Bedside 90 (70-110)
[2020-09-28 11:34] LABS: POC Glucose,Bedside 83 (70-110)
--- NOTE | 2020-10-01 07:33 | HMH.ANESCL ---
[facility] Anesthesia Checklist - Patient Identification Patient Identification: Arm Band - Structural Data Admitted From: Home Planned Operative Procedure/s: I & D perineal abscess Consent for Planned Operative Procedure(s) Verified: Yes - NPO Status Verified Time NPO: 00:00 - Additional verifications Anesthesia Reactions: Yes (PT STATES SHE HAS A HARD TIME WAKING UP FROM ANETHEISA) Hx Blood Transfusions: No Blood Transfusion Reaction: No - Airway Assessment C-Spine Mobility Assessed: Yes TMJ Mobility Assessed: Yes Dentition: Good Dentition - Neurological Assessment Level of Consciousness: Awake Hx Seizures: No Numbness or tingling in extremities: No - Anesthesia Plan Anesthesia Risk discussed: Yes Anesthesia Plan: Verified ASA Class: III Anesthesia Type: General [facility] History I have reviewed the patient's past medical history: Yes Medical History: Reports:: Depression, Diabetes Mellitus Type 2, Migraine Denies:: Cancer, Diabetes Mellitus Type 1, Internal Pacemaker, MRSA, Seizures *Have you ever received a pneumonia vaccine?: Yes *Have you received a flu vaccine this season?: Yes Other Medical History: Denies: Blood Transfusion Reaction Anesthesia experience/problems:: Throat hurt after LMA Laterality Cases: Bilateral: Myringotomy (Ear Tubes), Tonsillectomy, Total Hip Replacement Other Surgeries: Yes: , Tubal Ligation, Other. No: Pacemaker Amputation: No Fractures: Yes (RIGHT FOOT, LEFT FOOT, 2 FINGERS LEFT HAND) - *Social History Last grade of school completed: High school graduate Smoking Status: Current every day smoker Tobacco Type: cigarettes # Packs/Day (cigarettes): 2 Alcohol Intake: never Substance Use Type: marijuana *Occupational Status:: employed Housing: house Household Members: family *Travel in the last 8 weeks: None - Psychiatric History Pschychiatric History:: Reports:: Depression Family Hx:: No significant family history [employer]GR[employer] history: Tubal Ligation, Abnormal Uterine Bleeding
--- NOTE | 2020-10-01 07:34 | HMH.ANESII ---
[facility] Anesthesia Record Part II Discharge Time: 09:20 Destination: Surgical Day Care (OP Surgery) PACU nurse assessment reviewed?: Yes Patient Condition:: Good Anesthesia Complications:: None Swallowing reflex intact?: Yes Cyanosis?: No Blood Pressure: 114/66 Pulse Rate: 82 Temperature: 97.6 F Mental Status: Alert & Oriented Pain level:: 5 Nausea and/or vomitting:: None Intake, IV Amount: 900
[2020-10-01 07:35] VITALS: BP 114/66; PULSE 82; TEMP 36.4
== END 2020-09-27 10:40 | disposition home or self-care (01) ==
LOC: OR 06:28
PROVIDERS: PCP Nurse Practitioner Family; Visit Provider Surgery
PROC: (CPT 11402; principal; 2020-09-27 10:00)
DX: L73.2 Hidradenitis suppurativa (principal); L02.31 Cutaneous abscess of buttock; E11.9 Type 2 diabetes mellitus without complications; F32.9 Major depressive disorder, single episode, unspecified; G43.909 Migraine, unspecified, not intractable, without status migrainosus; Z96.22 Myringotomy tube(s) status; Z90.49 Acquired absence of other specified parts of digestive tract; Z72.0 Tobacco use; F12.90 Cannabis use, unspecified, uncomplicated; Z88.0 Allergy status to penicillin; Z88.8 Allergy status to other drugs, medicaments and biological substances; Z88.1 Allergy status to other antibiotic agents; Z91.040 Latex allergy status
CPT/HCPCS: 11402; 82962; 96374; J2405

== ENCOUNTER 2020-11-03 14:36 | Emergency (ER) | payer OTHER, SELFPAY ==
[2020-11-03 14:48] VITALS: BP 142/79; PULSE 105; RESP 18; TEMP 36.9; O2SAT 99; BMI 40.0
[2020-11-03 15:10] VITALS: BP 142/79; PULSE 105; RESP 18; TEMP 36.9; O2SAT 99; BMI 40.2
--- NOTE | 2020-11-03 15:39 | HMH.EDUTC ---
[facility] Disposition Clinical Impression: Hidradenitis suppurativa Disposition: Home, Self-Care Condition on Discharge: Good Instructions: Hidradenitis Suppurativa, Clindamycin Additional Instructions: *Start antibiotic(s) immediately and be sure to take as ordered for the FULL length of time although you may be feeling better or start to see improvement in the next 24-48 hours *Monitor closely. Outlined redness so that you can monitor easier. Follow up immediately for new or worsening symptoms including but not limited to redness, swelling, streaking from site fever or chills. *Warm compress 15 minutes 3-4 times day *Never squeeze or pop these on your own. Seek immediate medical attention next time this occurs *Monitor Temp. Tylenol every 4 hours as needed and ibuprofen every 6 hours as needed (as long as your primary care doctor has told you that it is ok to take both. For fever, aches, pain. ER if no less that 101 despite Tylenol and ibuprofen Follow up with your family doctor/primary care physician in the next 48-72 hours if no improvement Prescriptions: Etodolac 200 mg PO Q8HP PRN #20 cap PRN Reason: Moderate Pain Transmission Status: Pending to [facility] Doxycycline Monohydrate [Doxycycline Hale 100mg Tab] 100 mg PO BID 10 Days #20 tab Transmission Status: Pending to [facility] Referrals: Fay Villegas APRN [Primary Care Provider] - As needed Hong Locke MD [Staff Physician] - Ricki Peres MD [Staff Physician] - Time of Disposition: 15:52 Medical Decision Making - Edgar Inquiry Pt receiving controlled substance: No Edgar was queried for this patient: No Vital Signs: 11/03/20 14:48 11/03/20 15:10 Temperature 98.4 F 98.4 F Temperature Source Oral Oral Pulse Rate [Right] 105 H 105 H Respiratory Rate 18 18 Blood Pressure [Right Arm] 142/79 H 142/79 H Blood Pressure Mean [Right Arm] 100 100 Blood Pressure Source [Right Arm] Automatic Cuff Automatic Cuff Blood Pressure Position [Right Arm] Sitting Sitting 02 Sat by Pulse Oximetry 99 99 Oxygen Delivery Method Room Air Room Air Medical Decision Narrative: Recommended Clindamycin but patient refused states that it upset stomach and patient recently on Bactrim Ds and said it didnt work Patient state that she can take Ibuprofen and Motrin based products without complications or reactions [facility] HPI - General Stated complaint: abcesses on leg and under arm Time Seen by Provider: 11/03/20 15:40 Mode of Arrival: Ambulatory Source of Information: Patient Limitations: No Limitations Description of Symptoms (Recalled from Triage Doc. by RN): c/o abcesses to left groin & left axilla, reports subjective fever & chills. hx hidradenitis with surgical intervention 2 months ago HEENT Symptoms (Recalled from RN notes): No Resp Symptoms (Recalled from RN notes): No Skin Symptoms (Recalled from RN notes): Yes MS Symptoms (Recalled from RN notes): No Functional Status (Recalled from RN notes): WNL - History of Present Illness Provider Complaint: Patient states that she has hx of hidradenitis States that she just had it surgically opened about 2 mths ago State that she was out setting tobacco and she felt one in her left groin area open up and start draining and now it is red and warm State that she felt like she may have had fever and was worried that it may be infected again State that she has been on multiple antibiotics for it and nothing has really helped - Related Data Home Medications Medication Instructions Recorded Confirmed Metformin HCl [Fortamet] 500 mg PO DAILY 08/29/20 10/16/20 Spironolactone 50 mg PO DAILY 08/29/20 10/16/20 Previous Rx's Medication Instructions Recorded Doxycycline Monohydrate 100 mg PO BID 10 Days #20 tab 11/03/20 [Doxycycline Hale 100mg Tab] Etodolac 200 mg PO Q8HP PRN #20 cap 11/03/20 Allergies Allergy/AdvReac Type Severity Reaction Status Date / Time propranolol [From [facility]] All
[2020-11-03 15:58] VITALS: BP 142/79; PULSE 105; RESP 18; TEMP 36.9; O2SAT 99
== END 2020-11-03 16:02 | disposition home or self-care (01) ==
PROVIDERS: Emergency Provider Nurse Practitioner; PCP Nurse Practitioner Family
DX: L73.2 Hidradenitis suppurativa (principal); E11.9 Type 2 diabetes mellitus without complications; F17.210 Nicotine dependence, cigarettes, uncomplicated; Z88.0 Allergy status to penicillin; Z88.8 Allergy status to other drugs, medicaments and biological substances
CPT/HCPCS: 87070; 87077; 87186; 87205; 99202; G0463

== ENCOUNTER 2021-03-31 14:00 | Outpatient (RCR) | payer OTHER, SELFPAY | END 2021-04-30 15:32 | disposition home or self-care (01) | LOC: PT.CARL 14:00 | PROVIDERS: PCP Nurse Practitioner Family; Visit Provider Nurse Practitioner Family | DX: M79.621 Pain in right upper arm (principal); L73.2 Hidradenitis suppurativa; Z94.5 Skin transplant status | CPT/HCPCS: 97110; 97163 ==

== ENCOUNTER → 2022-01-20 19:59 | Outpatient (CLI) | payer OTHER, SELFPAY ==
[2022-01-20 20:56] LABS: Basophils # 0.1 K/mm3 (0-0.2); Basophils % 1.4 % (0.1-2.0); Eosinophils # 0.3 K/mm3 (0.0-0.4); Eosinophils % 3.2 % (0.1-12.0); Hematocrit 41.3 % (37.0-47.0); Hemoglobin 13.9 g/dL (12.2-16.2); Lymphocytes # 2.3 K/mm3 (0.7-4.5); Lymphocytes % 27.5 % (10-50); Mean Corpuscular HGB Conc 33.6 g/dL (31.8-35.4); Mean Corpuscular Hemoglobin 32.7 pg (27.0-31.2); Mean Corpuscular Volume 97.4 fl (81-99); Mean Platelet Volume 10.5 fl (7.4-10.4); Monocytes # 0.6 K/mm3 (0.1-1.0); Monocytes % 6.7 % (1.7-9.3); Neutrophils # 5.1 K/mm3 (1.8-7.8); Neutrophils % 61.3 % (37.0-80.0); Platelet Count 333 K/mm3 (142-424); Red Blood Count 4.24 M/mm3 (4.20-5.40); Red Cell Distribution Width 14.1 % (11.5-17.5); White Blood Count 8.4 K/mm3 (4.8-10.8)
[2022-01-20 21:02] LABS: Alanine Aminotransferase 19 U/L (12-78); Albumin Level 3.8 g/dl (3.5-5.0); Albumin/Globulin Ratio 1.2 (1.1-1.8); Alkaline Phosphatase 82 U/L (38-126); Anion Gap 16.2 mEq/L (5-15); Aspartate Amino Transferase 27 U/L (14-36); Bilirubin,Total 0.3 mg/dl (0.2-1.3); Blood Urea Nitrogen 11 mg/dl (7-17); Calcium 8.6 mg/dl (8.4-10.2); Carbon Dioxide 24 mmol/L (22.0-30.0); Chloride 104 mmol/L (98-107); Chol/HDL Ratio 6.5 (1-3.5); Cholesterol 136 mg/dl (140-200); Estimated Glomerular Filt Rate 145 ml/min (>60); GFR (African American) 175 ML/MIN (>60); Globulin 3.1 g/dL (1.3-3.2); Glucose 82 mg/dl (74-100); HDL Cholesterol 21 mg/dl (40-60); Potassium 4.2 mmoL/L (3.5-5.1); Sodium 140 mmol/L (136-145); Total Protein,Serum 6.9 g/dl (6.3-8.2); Triglycerides 217 mg/dl (30-150); VLDL Cholesterol 43 mg/dL (0-40)
[2022-01-20 21:11] LABS: Hemoglobin A1C 5.4 % (4.0-6.0)
[2022-01-20 21:19] LABS: 25-OH Vitamin D, Total 17.3 ng/mL (30-100); Direct LDL Cholesterol 75.04 mg/dL (100-129); Free Thyroxine Index 2.3 ug/dL (5.93-13.13); T4 (Thyroxine) 7.7 ug/dl (5.53-11.0); Triiodothryronine (T3) Uptake 30 % (23.5-40.5)
[2022-01-20 21:33] LABS: Thyroid Stimulating Hormone 1.68 uIU/mL (0.465-4.68)
[2022-01-20 21:53] LABS: Vitamin B12 281 pg/mL (239-931)
[2022-01-22 12:09] LABS: Insulin Level Total 59.2 uIU/mL (2.6-24.9)
== END ==
PROVIDERS: PCP Internal Medicine Adolescent Medicine; Visit Provider Internal Medicine Adolescent Medicine
DX: M32.9 Systemic lupus erythematosus, unspecified (principal); R73.9 Hyperglycemia, unspecified; E55.9 Vitamin D deficiency, unspecified
CPT/HCPCS: 80053; 80061; 82306; 82533; 82607; 83036; 83525; 84436; 84443; 84479; 85025

== ENCOUNTER → 2022-02-27 09:15 | Outpatient (CLI) | payer OTHER, SELFPAY | PROVIDERS: PCP Nurse Practitioner Family; Visit Provider Nurse Practitioner Family | DX: J02.9 Acute pharyngitis, unspecified (principal) | CPT/HCPCS: 87070 ==

== ENCOUNTER → 2022-03-25 11:25 | Outpatient (CLI) | payer OTHER, SELFPAY | PROVIDERS: PCP Nurse Practitioner Family; Visit Provider Nurse Practitioner Family | DX: J02.9 Acute pharyngitis, unspecified (principal) | CPT/HCPCS: 87070 ==

== ENCOUNTER → 2022-04-07 10:40 | Outpatient (CLI) | payer OTHER, SELFPAY ==
--- NOTE | 2022-04-07 11:05 | XR_ITS ---
FINAL REPORT CLINICAL HISTORY: cough, covid 2-3 wks ago, soa, passing out when cough is bad FINDINGS: TWO-VIEW CHEST Two views of the chest were obtained. The heart size and pulmonary vascularity are within normal limits. The mediastinum is normal. No acute pulmonary abnormality is identified. There is no pneumothorax. The bony thorax is intact. IMPRESSION: No active cardiopulmonary disease. Reviewed, Interpreted and Dictated by Odessa Nuno MD Transcribed by Luana Smith Authenticated and [facility]
[2022-04-07 13:14] LABS: Basophils # 0.1 K/mm3 (0-0.2); Basophils % 0.8 % (0.1-2.0); Eosinophils # 0.1 K/mm3 (0.0-0.4); Eosinophils % 1.4 % (0.1-12.0); Hematocrit 42.4 % (37.0-47.0); Hemoglobin 13.6 g/dL (12.2-16.2); Lymphocytes # 2.1 K/mm3 (0.7-4.5); Lymphocytes % 22.2 % (10-50); Mean Platelet Volume 8.8 fl (7.4-10.4); Monocytes # 0.4 K/mm3 (0.1-1.0); Monocytes % 4.6 % (1.7-9.3); Neutrophils # 6.8 K/mm3 (1.8-7.8); Neutrophils % 71.1 % (37.0-80.0); Platelet Count 371 K/mm3 (142-424); Red Blood Count 4.24 M/mm3 (4.20-5.40); Red Cell Distribution Width 13.6 % (11.5-17.5); White Blood Count 9.5 K/mm3 (4.8-10.8)
[2022-04-07 13:44] LABS: Chloride 103 mmol/L (98-107); Sodium 141 mmol/L (136-145)
[2022-04-07 13:45] LABS: Potassium 3.8 mmoL/L (3.5-5.1)
[2022-04-07 13:47] LABS: Blood Urea Nitrogen 13 mg/dl (7-17); Estimated Glomerular Filt Rate 84 ml/min (>60); GFR (African American) 102 ML/MIN (>60)
[2022-04-07 13:48] LABS: Anion Gap 13.8 mEq/L (5-15); Calcium 9.6 mg/dl (8.4-10.2); Carbon Dioxide 28 mmol/L (22.0-30.0); Glucose 79 mg/dl (74-100)
[2022-04-07 13:55] LABS: D-Dimer 0.72 ug/mL (0.0-0.5)
== END ==
PROVIDERS: PCP Nurse Practitioner Family; Visit Provider Nurse Practitioner Family
DX: R55 Syncope and collapse (principal); R05.9 Cough, unspecified
CPT/HCPCS: 36415; 71046; 80048; 85025; 85378; 93225; 93226

== ENCOUNTER 2022-04-07 15:53 | Emergency (ER) | payer OTHER, SELFPAY ==
[2022-04-07 15:53] VITALS: BP 120/72; PULSE 82; RESP 18; TEMP 36.4; O2SAT 98; BMI 49.4
[2022-04-07 16:00] VITALS: BP 114/74; PULSE 87; O2SAT 97
--- NOTE | 2022-04-07 16:03 | CT_ITS ---
PROCEDURE INFORMATION: Exam: CTA Chest With Contrast Exam date and time: 04/07/2022 4:36 PM Age: 31 years old Clinical indication: Abnormal findings; Other: Elevated d-dimer TECHNIQUE: Imaging protocol: Computed tomographic angiography of the chest with contrast. 3D rendering (Not supervised by radiologist): MIP and/or 3D reconstructed images were created by the technologist. Radiation optimization: All CT scans at this facility use at least one of these dose optimization techniques: automated exposure control; mA and/or kV adjustment per patient size (includes targeted exams where dose is matched to clinical indication); or iterative reconstruction. Contrast material: ISOVUE; Contrast volume: 70 ml; Contrast route: INTRAVENOUS (IV); COMPARISON: CR XR CHEST 2V 04/07/2022 11:13 AM FINDINGS: Pulmonary arteries: Pulmonary artery is normal in caliber. No evidence of filling defects to suggest pulmonary emboli. The RV: LV ratio is less than 1. Aorta: Unremarkable. No aortic aneurysm. No aortic dissection. Lungs: Lingular atelectasis noted. No evidence of airspace opacity or interlobular septal thickening. Pleural spaces: Unremarkable. No pneumothorax. No pleural effusion. Heart: No cardiomegaly or pericardial effusion. No significant coronary artery calcifications. Lymph nodes: Calcified node in the right hilum likely sequela of prior granulomatous process. Bones/joints: Unremarkable. No acute fracture. Soft tissues: Unremarkable. IMPRESSION: 1. No pulmonary embolus. 2. No airspace or interstitial lung disease
--- NOTE | 2022-04-07 16:03 | HMH.EDGENADL ---
Discharge Plan Disposition Patient Disposition: Home, Self-Care Condition: Fair Prescriptions Prescriptions: New azithromycin [Zithromax Z-Jose] 250 mg tablet 250 mg PO DAILY 6 Days Qty: 6 0RF Rx Instructions: start on day 2 of therapy guaifenesin 200 mg/5 mL liquid 200 mg PO Q6H PRN (Reason: congestion) Qty: 118 0RF albuterol sulfate 90 mcg/actuation HFA aerosol inhaler 1 inh inhalation Q6H PRN (Reason: shortness of breath or wheezing) Qty: 6.7 0RF No Action Robitussin Cough-Chest Derick DM 5-100 mg/5 mL liquid 10 ml PO Q8H PRN (Reason: cough) Qty: 118 0RF Benadryl 2 % gel 1 applic topical BID PRN (Reason: itching) Qty: 103 0RF ibuprofen 800 mg tablet 800 mg PO Q8H PRN Humira(CF) Pen 80 mg/0.8 mL pen injector kit 80 mg SQ Q2W clobetasol 0.05 % ointment topical DAILY PRN chlorhexidine gluconate [Antiseptic Skin Clnsr(chlorhe)] 4 % liquid 1 applic topical .COMPLEX PRN Rx Instructions: 1 applic topically PRN; liraglutide 0.6 mg/0.1 mL (18 mg/3 mL) pen injector 0.6 mg SQ DAILY Qty: 6 2RF Rx Instructions: 0.6 mg once daily x1 week then increase to 1.2 mg once daily x1 week. Call clinic after first week bupropion HCl [Wellbutrin XL] 150 mg tablet extended release 24 hr 150 mg PO DAILY Qty: 30 1RF spironolactone 50 mg tablet 50 mg PO DAILY Qty: 30 2RF cholecalciferol (vitamin D3) 10 mcg (400 unit) capsule 10 mcg PO DAILY Qty: 30 3RF amitriptyline 10 mg tablet 10 mg PO DAILY Activity Restrictions/Add. Instructions Additional Instructions/Restrictions: You have been evaluated for cough, near syncope. Diagnosed with atypical pneumonia. Please take azithromycin as prescribed. Use guaifenesin for cough. Use albuterol inhaler as needed. Follow-up with your primary care doctor in 1 to 2 days for symptom recheck. Return to the emergency department for any new or worsening symptoms Clinical Impressions Clinical Impression: CAP (community acquired pneumonia), Expiratory wheezing Instructions Patient Instructions: DI for Atypical Pneumonia Discharge ED Provider: Dipika Villa General Adult HPI General Chief complaint: Syncope Stated complaint: syncope Time Seen by Provider: 04/07/22 15:54 Mode of Arrival: EMS Source of Information: Patient and EMS Limitations: No Limitations Description of Symptoms (Recalled from ER Triage Doc. by RN): c/o hitting her head on the bathroom sink after passing out. PT states she was getting ready to come to the hospital for a CT scan and while getting ready she passed out History of Present Illness HPI narrative: 31-year-old female presenting to the emergency department with cough, chest congestion, syncope. Cough and chest congestion started a few days ago. She has felt generally unwell, body aches. She has a cough that is wet and hacking. She has coughing fits. After coughing fit today she passed out. She had seen her primary care doctor, Pau Cook APRN earlier today. Had routine blood work obtained including a D-dimer. D-dimer was elevated at 0.72. Patient has no history of DVT or PE. Related Data Home Medications Medication Instructions Recorded Confirmed adalimumab 80 mg/0.8 mL 80 mg SQ Q2W 01/15/22 04/07/22 subcutaneous pen kit (Humira(CF) Pen) chlorhexidine gluconate 4 % 1 applic topical .COMPLEX PRN 01/15/22 04/07/22 topical liquid (Antiseptic Skin Cleanser (chlorhexidine)) clobetasol 0.05 % topical ointment g topical DAILY PRN 01/15/22 04/07/22 ibuprofen 800 mg tablet 800 mg PO Q8H PRN 01/15/22 04/07/22 amitriptyline 10 mg tablet 10 mg PO DAILY 04/01/22 04/07/22 Previous Rx's Medication Instructions Recorded liraglutide 0.6 mg/0.1 mL (18 mg/3 0.6 mg (0.1 mL) SQ DAILY #6 mL 01/28/22 mL) subcutaneous pen injector dextromethorphan-guaifenesin 5 10 ml PO Q8H PRN cough #118 mL 03/25/22 mg-100 mg/5 mL oral liquid (Robitussin Cough-Chest Congestion DM)
--- NOTE | 2022-04-07 16:15 | ECG_ITS ---
APPROVED REPORT Exam: Resting ECG HR:80 bpm ECG Measurements Heart Rate 80 AXES GA 176 P 29 QRSd 106 QRS 2 QT 389 T 13 QTc 424 Conclusion SINUS RHYTHM NORMAL ECG UNCONFIRMED REPORT Electronically signed by : Jamil Ellison MD 04/07/2022 20:17:53
[2022-04-07 16:27] LABS: Coronavirus 19, PCR Not Detected (NotDetected); Influenza A, PCR Not Detected (NotDetected); Influenza B, PCR Not Detected (NotDetected)
[2022-04-07 16:38] LABS: Basophils # 0.1 K/mm3 (0-0.2); Basophils % 0.9 % (0.1-2.0); Eosinophils # 0.2 K/mm3 (0.0-0.4); Eosinophils % 1.6 % (0.1-12.0); Hematocrit 44.2 % (37.0-47.0); Lymphocytes # 1.8 K/mm3 (0.7-4.5); Lymphocytes % 18.6 % (10-50); Mean Corpuscular HGB Conc 31.7 g/dL (31.8-35.4); Mean Corpuscular Hemoglobin 31.4 pg (27.0-31.2); Mean Corpuscular Volume 99.3 fl (81-99); Mean Platelet Volume 8.6 fl (7.4-10.4); Monocytes # 0.4 K/mm3 (0.1-1.0); Monocytes % 4.1 % (1.7-9.3); Neutrophils # 7.1 K/mm3 (1.8-7.8); Neutrophils % 74.7 % (37.0-80.0); Platelet Count 345 K/mm3 (142-424); Red Blood Count 4.45 M/mm3 (4.20-5.40); Red Cell Distribution Width 13.7 % (11.5-17.5); White Blood Count 9.4 K/mm3 (4.8-10.8)
[2022-04-07 16:41] LABS: Chloride 103 mmol/L (98-107); Potassium 3.6 mmoL/L (3.5-5.1); Sodium 139 mmol/L (136-145)
[2022-04-07 16:43] LABS: Blood Urea Nitrogen 13 mg/dl (7-17); Creatinine Clearance Estimated 98 mL/min (50-200); Estimated Glomerular Filt Rate 117 ml/min (>60); GFR (African American) 142 ML/MIN (>60)
--- NOTE | 2022-04-07 16:43 | PC.NURSE ---
Patient back from CT via wheelchair
[2022-04-07 16:44] LABS: Alanine Aminotransferase 24 U/L (12-78); Albumin Level 4.4 g/dl (3.5-5.0); Albumin/Globulin Ratio 1.1 (1.1-1.8); Alkaline Phosphatase 82 U/L (38-126); Anion Gap 11.6 mEq/L (5-15); Aspartate Amino Transferase 34 U/L (14-36); Bilirubin,Total 0.6 mg/dl (0.2-1.3); Calcium 9.3 mg/dl (8.4-10.2); Carbon Dioxide 28 mmol/L (22.0-30.0); Glucose 84 mg/dl (74-100); Total Protein,Serum 8.4 g/dl (6.3-8.2)
[2022-04-07 17:00] LABS: Troponin I < 0.01 ng/ml (0.00-0.034)
[2022-04-07 17:01] VITALS: BP 100/83; PULSE 82; O2SAT 96
[2022-04-07 17:04] LABS: HCG Qualitative, Serum Negative (Negative)
[2022-04-07 17:30] VITALS: BP 120/69; PULSE 72; O2SAT 95
[2022-04-07 18:01] VITALS: BP 114/59; PULSE 73; O2SAT 97
[2022-04-07 18:23] VITALS: BP 114/59; PULSE 73; RESP 19; TEMP 36.4; O2SAT 97
== END 2022-04-07 18:24 | disposition home or self-care (01) ==
PROVIDERS: Emergency Provider Emergency Medicine; PCP Nurse Practitioner Family
DX: R55 Syncope and collapse (principal); J18.9 Pneumonia, unspecified organism; M79.10 Myalgia, unspecified site; R53.82 Chronic fatigue, unspecified; Z20.822 Contact with and (suspected) exposure to COVID-19; G43.909 Migraine, unspecified, not intractable, without status migrainosus; M32.9 Systemic lupus erythematosus, unspecified; L73.2 Hidradenitis suppurativa; F32.A Depression, unspecified; F41.9 Anxiety disorder, unspecified; F17.210 Nicotine dependence, cigarettes, uncomplicated; Z79.1 Long term (current) use of non-steroidal anti-inflammatories (NSAID); Z79.51 Long term (current) use of inhaled steroids; Z79.899 Other long term (current) drug therapy; Z88.0 Allergy status to penicillin; Z88.1 Allergy status to other antibiotic agents; Z88.3 Allergy status to other anti-infective agents; Z88.8 Allergy status to other drugs, medicaments and biological substances; Z91.040 Latex allergy status; Z91.048 Other nonmedicinal substance allergy status; W17.89XA Other fall from one level to another, initial encounter
CPT/HCPCS: 71275; 80053; 84484; 84703; 85025; 93005; 99285; C9803; Q9967; U0003; U0005

== ENCOUNTER → 2023-01-26 13:45 | Outpatient (CLI) | payer OTHER, SELFPAY | PROVIDERS: PCP Family Medicine; Visit Provider Family Medicine | DX: R05.9 Cough, unspecified (principal); J02.9 Acute pharyngitis, unspecified; R50.9 Fever, unspecified; R09.89 Other specified symptoms and signs involving the circulatory and respiratory systems | CPT/HCPCS: 87635 ==

== ENCOUNTER → 2023-03-08 08:37 | Outpatient (CLI) | payer OTHER, SELFPAY ==
--- NOTE | 2023-03-08 08:48 | MR_ITS ---
FINAL REPORT CLINICAL HISTORY: Headaches, lupus, risk for vasculitis COMPARISON: None FINDINGS: Multiple projection images of the brain arterial vasculature were obtained without contrast. There is significant motion artifact which limits overall image quality. The raw data images were also reviewed. The distal internal carotid, distal vertebral and basilar arteries have an unremarkable appearance without evidence of significant stenosis or occlusion. The proximal anterior, middle and posterior cerebral arteries have an unremarkable appearance. There is no evidence of significant stenosis or major branch occlusion. No aneurysm or vascular malformation is identified. A left maxillary polyp versus retention cyst is present. IMPRESSION: Unremarkable MR angiogram of the head, though somewhat limited by significant motion artifact. Reviewed, Interpreted and Dictated by Ricki Carreon III, MD Transcribed by Scarlett Andujar Authenticated and [facility]
--- NOTE | 2023-03-08 08:48 | MR_ITS ---
FINAL REPORT CLINICAL HISTORY: Headaches, lupus, eval for vasculitis 20ml prihance injected COMPARISON: None FINDINGS: Multiplanar MR imaging of the brain was performed without and with contrast. There is motion on multiple images that somewhat limits overall image quality. There is no evidence of intracranial hemorrhage or mass. No abnormal extra-axial fluid collection is seen. The ventricular size is within normal limits. There is no evidence of shift of the midline structures. The posterior fossa and brainstem have an unremarkable appearance. No area of abnormal restricted diffusion is identified. No abnormal contrast enhancement is seen. Normal major vessel vascular flow voids are noted. A left maxillary polyp or retention cyst is present. IMPRESSION: No acute intracranial abnormality identified. Reviewed, Interpreted and Dictated by Ricki Carreon III, MD Transcribed by Scarlett Andujar Authenticated and [facility]
--- NOTE | 2023-03-08 09:58 | US_ITS ---
FINAL REPORT CLINICAL HISTORY: Enlarged thyroid on exam COMPARISON: None FINDINGS: THYROID ULTRASOUND: The right lobe of the thyroid gland measures 4.6 x 1.5 x 1.6 cm, borderline enlarged. There is a single nodule in the right lobe of the thyroid, measuring 7 x 6 x 7 mm in size, solid, hyperechoic, a TI-RADS 3 category nodule. The left lobe of the thyroid gland measures 4.6 x 1.6 x 1.9 cm in size also borderline enlarged. There is a single nodule in the left lobe of the thyroid, measuring 6 x 5 x 4 mm in size, solid, hypoechoic, a TI-RADS 4 category nodule The isthmus of the thyroid is unremarkable in appearance and measures 2.3 mm in thickness.. IMPRESSION: Single nodules in both the right and left lobes of the thyroid gland as described. Neither of these nodules requires follow-up at this time according to TI-RADS criteria. Borderline thyromegaly. Reviewed, Interpreted and Dictated by Ricki Carreon III, MD Transcribed by Scarlett Andujar Authenticated and [facility]
[2023-03-08 10:54] LABS: Basophils # 0.1 K/mm3 (0-0.2); Basophils % 0.9 % (0.1-2.0); Eosinophils # 0.2 K/mm3 (0.0-0.4); Eosinophils % 2.5 % (0.1-12.0); Hemoglobin 14.9 g/dL (12.2-16.2); Lymphocytes # 2.1 K/mm3 (0.7-4.5); Mean Corpuscular HGB Conc 33.9 g/dL (31.8-35.4); Mean Corpuscular Hemoglobin 33.6 pg (27.0-31.2); Mean Corpuscular Volume 99.3 fl (81-99); Mean Platelet Volume 8.4 fl (7.4-10.4); Monocytes # 0.4 K/mm3 (0.1-1.0); Monocytes % 4.2 % (1.7-9.3); Neutrophils # 6.1 K/mm3 (1.8-7.8); Neutrophils % 68.4 % (37.0-80.0); Platelet Count 248 K/mm3 (142-424); Red Blood Count 4.43 M/mm3 (4.20-5.40); Red Cell Distribution Width 13.3 % (11.5-17.5); White Blood Count 8.9 K/mm3 (4.8-10.8)
[2023-03-08 11:30] LABS: Chloride 107 mmol/L (98-107)
[2023-03-08 11:31] LABS: Potassium 4.6 mmoL/L (3.5-5.1); Sodium 139 mmol/L (136-145)
[2023-03-08 11:33] LABS: Alanine Aminotransferase 21 U/L (12-78); Blood Urea Nitrogen 18 mg/dl (7-17); Estimated Glomerular Filt Rate 117 ml/min (>60); GFR (African American) 141 ML/MIN (>60)
[2023-03-08 11:34] LABS: Albumin Level 4.3 g/dl (3.5-5.0); Albumin/Globulin Ratio 1.3 (1.1-1.8); Alkaline Phosphatase 64 U/L (38-126); Anion Gap 9.6 mEq/L (5-15); Aspartate Amino Transferase 23 U/L (14-36); Bilirubin,Total 0.4 mg/dl (0.2-1.3); Calcium 8.9 mg/dl (8.4-10.2); Carbon Dioxide 27 mmol/L (22.0-30.0); Globulin 3.2 g/dL (1.3-3.2); Glucose 85 mg/dl (74-100); Total Protein,Serum 7.5 g/dl (6.3-8.2)
[2023-03-08 11:59] LABS: Hemoglobin A1C 4.9 % (4.0-6.0)
[2023-03-08 12:01] LABS: Thyroid Stimulating Hormone 2.66 uIU/mL (0.465-4.68)
[2023-03-08 12:51] LABS: Vitamin B12 277 pg/mL (239-931)
[2023-03-08 12:53] LABS: Folate 6.56 ng/mL
[2023-03-09 15:34] LABS: Anti-Cardio Antibody IgM 9 MPL U/mL (0-12); Anti-Cardiolipin Antibody IgG <9 GPL U/mL (0-14); Anticardiolipin Ab,IgA,Qn <9 APL U/mL (0-11)
[2023-03-11 07:57] LABS: Beta-2 Glycoprotein I Ab, IgG <9 (0-20); Beta-2 Glycoprotein I Ab, IgM <9 (0-32)
[2023-03-12 12:32] LABS: APTT 27.5 sec (.); Anti-Cardiolipin Antibody IgG <10 GPL (.); Anti-Cardiolipin Antibody IgM <10 MPL (.); Beta-2 Glycoprotein I Ab, IgA <10 SAU (.); Beta-2 Glycoprotein I Ab, IgG <10 SGU (.); Beta-2 Glycoprotein I Ab, IgM <10 SMU (.); Hexagonal Phase Phospholipid 8 sec (.); Prothrombin Time 10.4 sec (.); Thrombin Time 16.4 sec (.)
[2023-03-14 12:21] LABS: Antinuclear Antibodies (ANA) Negative
== END ==
LOC: RAD 08:38
PROVIDERS: PCP Family Medicine; Visit Provider Nurse Practitioner Family
DX: G43.119 Migraine with aura, intractable, without status migrainosus (principal); G89.29 Other chronic pain; L73.2 Hidradenitis suppurativa; M32.9 Systemic lupus erythematosus, unspecified; E04.9 Nontoxic goiter, unspecified; R73.9 Hyperglycemia, unspecified; G47.9 Sleep disorder, unspecified; N96 Recurrent pregnancy loss; R06.83 Snoring; E66.01 Morbid (severe) obesity due to excess calories; Z68.41 Body mass index [BMI] 40.0-44.9, adult; Z72.0 Tobacco use; Z87.898 Personal history of other specified conditions
CPT/HCPCS: 36415; 70544; 70553; 76536; 80053; 82607; 82746; 83036; 84443; 85025; 85597; 85598; 85610; 85613; 85670; 85730; 86038; 86146; 86147; 86225; 86235; A9576

== ENCOUNTER → 2023-04-19 11:28 | Outpatient (CLI) | payer OTHER, SELFPAY | PROVIDERS: PCP Nurse Practitioner Family; Visit Provider Nurse Practitioner Family | DX: G47.9 Sleep disorder, unspecified (principal); R06.83 Snoring; R51.9 Headache, unspecified; M32.9 Systemic lupus erythematosus, unspecified; L73.2 Hidradenitis suppurativa; R73.9 Hyperglycemia, unspecified; G89.29 Other chronic pain; N96 Recurrent pregnancy loss; Z87.898 Personal history of other specified conditions; E66.01 Morbid (severe) obesity due to excess calories; Z68.41 Body mass index [BMI] 40.0-44.9, adult; Z72.0 Tobacco use | CPT/HCPCS: G0399 ==

== ENCOUNTER 2023-12-13 16:45 | Outpatient (CLI) | payer OTHER, SELFPAY ==
[2023-12-13 16:58] LABS: Basophils # 0.1 K/mm3 (0-0.2); Basophils % 0.8 % (0.1-2.0); Eosinophils # 0.2 K/mm3 (0.0-0.4); Eosinophils % 2.4 % (0.1-12.0); Hematocrit 43.5 % (37.0-47.0); Hemoglobin 14.4 g/dL (12.2-16.2); Lymphocytes # 2.7 K/mm3 (0.7-4.5); Mean Corpuscular Hemoglobin 33.1 pg (27.0-31.2); Mean Corpuscular Volume 100.2 fl (81-99); Mean Platelet Volume 9.9 fl (7.4-10.4); Monocytes # 0.6 K/mm3 (0.1-1.0); Monocytes % 6.1 % (1.7-9.3); Neutrophils # 6.3 K/mm3 (1.8-7.8); Neutrophils % 63.6 % (37.0-80.0); Platelet Count 326 K/mm3 (142-424); Red Blood Count 4.34 M/mm3 (4.20-5.40); Red Cell Distribution Width 13.9 % (11.5-17.5); White Blood Count 9.8 K/mm3 (4.8-10.8)
[2023-12-13 17:48] LABS: Alanine Aminotransferase 17 U/L (12-78); Albumin Level 3.8 g/dl (3.5-5.0); Albumin/Globulin Ratio 1.2 (1.1-1.8); Alkaline Phosphatase 64 U/L (38-126); Anion Gap 11.7 mEq/L (5-15); Aspartate Amino Transferase 19 U/L (14-36); Bilirubin,Total 0.4 mg/dl (0.2-1.3); Blood Urea Nitrogen 11 mg/dl (7-17); Calcium 8.9 mg/dl (8.4-10.2); Carbon Dioxide 24 mmol/L (22.0-30.0); Chloride 108 mmol/L (98-107); Chol/HDL Ratio 6.9 (1-3.5); Cholesterol 158 mg/dl (140-200); Estimated Glomerular Filt Rate 143 ml/min (>60); GFR (African American) 173 ML/MIN (>60); Globulin 3.3 g/dL (1.3-3.2); Glucose 71 mg/dl (74-100); HDL Cholesterol 23 mg/dl (40-60); Potassium 3.7 mmoL/L (3.5-5.1); Sodium 140 mmol/L (136-145); Total Protein,Serum 7.1 g/dl (6.3-8.2); Triglycerides 368 mg/dl (30-150); VLDL Cholesterol 74 mg/dL (0-40)
[2023-12-13 17:59] LABS: Direct LDL Cholesterol 81.76 mg/dL (100-129)
[2023-12-13 18:08] LABS: 25-OH Vitamin D, Total 23.3 ng/mL (30-100)
[2023-12-13 18:39] LABS: Free Thyroxine Index 2.1 ug/dL (5.93-13.13); T4 (Thyroxine) 7.3 ug/dl (5.53-11.0); Triiodothryronine (T3) Uptake 29 % (23.5-40.5)
[2023-12-13 18:53] LABS: Thyroid Stimulating Hormone 2.09 uIU/mL (0.465-4.68)
[2023-12-13 20:00] LABS: Hemoglobin A1C 5.3 % (4.0-6.0)
== END 2023-12-13 23:59 | disposition home or self-care (01) ==
LOC: LAB.DROPOF 16:46
PROVIDERS: PCP Nurse Practitioner Family; Visit Provider Nurse Practitioner Family
DX: E55.9 Vitamin D deficiency, unspecified (principal); F32.A Depression, unspecified; E66.9 Obesity, unspecified
CPT/HCPCS: 80050; 80053; 80061; 82306; 83036; 84436; 84443; 84479; 85025

== ENCOUNTER 2024-07-27 09:35 | Outpatient (CLI) | payer OTHER, SELFPAY ==
[2024-07-27 10:02] LABS: Basophils # 0.1 K/mm3 (0-0.2); Basophils % 0.6 % (0.1-2.0); Eosinophils # 0.1 K/mm3 (0.0-0.4); Eosinophils % 1.5 % (0.1-12.0); Hematocrit 41.8 % (37.0-47.0); Hemoglobin 14.5 g/dL (12.2-16.2); Lymphocytes # 2.2 K/mm3 (0.7-4.5); Lymphocytes % 25.8 % (10-50); Mean Corpuscular HGB Conc 34.7 g/dL (31.8-35.4); Mean Corpuscular Hemoglobin 32.4 pg (27.0-31.2); Mean Corpuscular Volume 93.3 fl (81-99); Mean Platelet Volume 10.3 fl (7.4-10.4); Monocytes # 0.3 K/mm3 (0.1-1.0); Monocytes % 3.9 % (1.7-9.3); Neutrophils # 5.8 K/mm3 (1.8-7.8); Neutrophils % 67.7 % (37.0-80.0); Platelet Count 296 K/mm3 (142-424); Red Blood Count 4.48 M/mm3 (4.20-5.40); Red Cell Distribution Width 13.7 % (11.5-17.5); White Blood Count 8.5 K/mm3 (4.8-10.8)
[2024-07-27 10:32] LABS: Alanine Aminotransferase 23 U/L (12-78); Albumin Level 4.4 g/dl (3.5-5.0); Albumin/Globulin Ratio 1.6 (1.1-1.8); Alkaline Phosphatase 54 U/L (38-126); Anion Gap 10.7 mEq/L (5-15); Aspartate Amino Transferase 22 U/L (14-36); Bilirubin,Total 0.6 mg/dl (0.2-1.3); Blood Urea Nitrogen 16 mg/dl (7-17); Calcium 9.1 mg/dl (8.4-10.2); Carbon Dioxide 23 mmol/L (22.0-30.0); Chloride 107 mmol/L (98-107); Estimated Glomerular Filt Rate 143 ml/min (>60); GFR (African American) 173 ML/MIN (>60); Globulin 2.8 g/dL (1.3-3.2); Glucose 117 mg/dl (74-100); Potassium 3.7 mmoL/L (3.5-5.1); Sodium 137 mmol/L (136-145); Total Protein,Serum 7.2 g/dl (6.3-8.2)
[2024-07-27 10:46] LABS: T4 (Thyroxine) 8.1 ug/dl (5.53-11.0)
[2024-07-27 10:59] LABS: Thyroid Stimulating Hormone 1.78 uIU/mL (0.465-4.68)
[2024-07-28 08:13] LABS: FSH 2.6 mIU/mL (.)
== END 2024-07-27 23:59 | disposition home or self-care (01) ==
LOC: LAB 09:37
PROVIDERS: PCP Family Medicine; Visit Provider Family Medicine
DX: R10.9 Unspecified abdominal pain (principal); E66.9 Obesity, unspecified
CPT/HCPCS: 36415; 80053; 82533; 83001; 84436; 84443; 85025

== ENCOUNTER 2024-08-03 10:05 | Outpatient (CLI) | payer OTHER, SELFPAY ==
--- NOTE | 2024-08-03 11:00 | US_ITS ---
FINAL REPORT TECHNIQUE: Sonographic images of the thyroid gland were obtained in the longitudinal and transverse planes. CLINICAL HISTORY: f/u nodules FINDINGS: The right lobe measures 1.9 x 4.7 x 1.8 cm. Hypoechoic 8 mm TR 3 nodule, not significantly changed. The left lobe measures 1.4 x 4.1 x 1.6 cm. 7 mm hypoechoic nodule in the lower pole is unchanged. No new abnormality identified. The isthmus measures 2 mm. This is normal. IMPRESSION: TR 3 right nodule and TR 4 left nodule, both stable. Based on small size, no current recommendation for follow-up per TI-RADS criteria. Reviewed, Interpreted and Dictated by Tashia Robert MD Transcribed by Anita Driscoll Authenticated and [facility]
== END 2024-08-03 23:59 | disposition home or self-care (01) ==
LOC: RAD 10:06
PROVIDERS: PCP Family Medicine; Visit Provider Family Medicine
DX: E01.0 Iodine-deficiency related diffuse (endemic) goiter (principal)
CPT/HCPCS: 76536

== ENCOUNTER 2024-09-21 09:15 | Outpatient (CLI) | payer OTHER, SELFPAY ==
[2024-09-21 16:53] LABS: Basophils # 0.1 K/mm3 (0-0.2); Basophils % 0.7 % (0.1-2.0); Eosinophils # 0.2 Kmm3 (0.0-0.4); Eosinophils % 1.7 % (0.1-12.0); Hematocrit 40.5 % (37.0-47.0); Hemoglobin 13.4 g/dL (12.2-16.2); Immature Granulocytes # 0.04 10^3uL; Immature Granulocytes % 0.4 %; Lymphocytes # 2.7 K/mm3 (0.7-4.5); Lymphocytes % 29.7 % (10-50); Mean Corpuscular HGB Conc 33.1 g/dL (31.8-35.4); Mean Corpuscular Hemoglobin 32.1 pg (27.0-31.2); Mean Corpuscular Volume 96.9 fl (81-99); Mean Platelet Volume 11.5 fl (7.4-10.4); Monocytes # 0.5 K/mm3 (0.1-1.0); Neutrophils # 5.5 K/mm3 (1.8-7.8); Neutrophils % 61.5 % (37.0-80.0); Nucleated Red Blood Cells # 0 10^3/uL; Nucleated Red Blood Cells % 0 %; Platelet Count 277 K/mm3 (142-424); Red Blood Count 4.18 M/mm3 (4.20-5.40); Red Cell Distribution Width-SD 50.4 fL
[2024-09-21 17:01] LABS: Alanine Aminotransferase 20 U/L (12-78); Albumin/Globulin Ratio 1.4 (1.1-1.8); Alkaline Phosphatase 65 U/L (38-126); Amylase 60 U/L (30-110); Anion Gap 9.7 mEq/L (5-15); Aspartate Amino Transferase 20 U/L (14-36); Bilirubin,Total 0.3 mg/dl (0.2-1.3); Blood Urea Nitrogen 13 mg/dl (7-17); Calcium 8.8 mg/dl (8.4-10.2); Carbon Dioxide 23 mmol/L (22.0-30.0); Chloride 108 mmol/L (98-107); Estimated Glomerular Filt Rate 143 ml/min (>60); GFR (African American) 173 ML/MIN (>60); Globulin 2.9 g/dL (1.3-3.2); Glucose 114 mg/dl (74-100); Lipase 74 U/L (23-300); Potassium 3.7 mmoL/L (3.5-5.1); Sodium 137 mmol/L (136-145); Total Protein,Serum 6.9 g/dl (6.3-8.2)
[2024-09-21 17:07] LABS: C-Reactive Protein 10.8 mg/L (0-4)
[2024-09-21 17:43] LABS: HIV Combo NEGATIVE (Negative)
[2024-09-21 18:23] LABS: Hepatitis C Ab Qual. W/ RFX NEGATIVE (Negative)
[2024-09-21 19:44] LABS: Hemoglobin A1C 5.3 % (4.0-6.0)
[2024-09-22 10:36] LABS: RPR W/RFX Titers Nonreactive (Nonreactive)
== END 2024-09-21 23:59 | disposition home or self-care (01) ==
LOC: LAB.DROPOF 09-22 11:19
PROVIDERS: PCP Nurse Practitioner Family; Visit Provider Nurse Practitioner Family
DX: R10.11 Right upper quadrant pain (principal); L25.9 Unspecified contact dermatitis, unspecified cause; Z20.2 Contact with and (suspected) exposure to infections with a predominantly sexual mode of transmission
CPT/HCPCS: 80053; 82150; 83036; 83690; 85025; 86140; 86592; 86803; 87389

== ENCOUNTER 2025-04-08 12:22 | Emergency (ER) | payer OTHER, SELFPAY ==
[2025-04-08 12:25] VITALS: BP 115/73; PULSE 83; RESP 18; TEMP 36.8; O2SAT 100; BMI 45.8
--- NOTE | 2025-04-08 12:32 | ED_ITS ---
Discharge Plan Disposition Patient Disposition: Home, Self-Care Prescriptions Prescriptions: New clindamycin HCl [Cleocin HCl] 300 mg capsule 300 mg PO BID 7 Days Qty: 14 0RF ketorolac 10 mg tablet 10 mg PO Q8H 5 Days Qty: 15 0RF acetaminophen 650 mg tablet extended release 650 mg PO Q8H PRN (Reason: pain) Qty: 30 0RF No Action chlorhexidine gluconate [Antiseptic Skin Clnsr(chlorhe)] 4 % liquid topical clobetasol 0.05 % ointment 1 applic topical BID 14 Days Qty: 30 1RF bimekizumab-bkzx 320 mg/2 mL auto-injector 320 mg SQ Q2W betamethasone dipropionate 0.05 % cream 1 applic topical BID Qty: 45 1RF diphenhydramine HCl [Children's Allergy (diphenhyd)] 12.5 mg/5 mL liquid 12.5 mg PO PRN pimecrolimus 1 % cream topical Patient Comments: Apply to affected areas twice daily as needed when flared. ibuprofen 800 mg tablet 800 mg PO TID PRN (Reason: pain) Qty: 90 3RF sertraline 150 mg capsule 150 mg PO DAILY Qty: 30 2RF cholecalciferol (vitamin D3) 50 mcg (2,000 unit) capsule 50 mcg PO DAILY Qty: 90 2RF ropinirole 0.5 mg tablet 0.5 mg PO HS Qty: 30 2RF Rx Instructions: administer 1-3 hours before bedtime spironolactone 50 mg tablet 50 mg PO BID 30 Days Qty: 60 3RF albuterol sulfate [Ventolin HFA] 90 mcg/actuation HFA aerosol inhaler See Rx Instructions .ROUTE .COMPLEX Qty: 18 0RF Dose Instruction: 2 PUFF INHALED EVERY 6 HOURS NEEDED FOR SHORTNESS OF BREATH OR WHEEZING Rx Instructions: 2 PUFF INHALED EVERY 6 HOURS NEEDED FOR SHORTNESS OF BREATH OR WHEEZING Referrals Follow up/Referrals: Fabián Lang MD [Primary Care Provider, Internal Medicine] - See instructions Activity Restrictions/Add. Instructions Additional Instructions/Restrictions: Increase fluids and rest. Take meds as directed. Please follow-up with your doctor for the at bedtime. If any worsening signs and symptoms occur please return to the ED. Clinical Impressions Clinical Impression: Hydradenitis, COVID-19 Instructions Patient Instructions: Hidradenitis Suppurativa, COVID-19 Print Language Print Language: Kazakh Discharge ED Provider: Dewey Ybarra Adult HPI <Roro Kilmarcial (ED), FENCE INSTALLER - Last Filed: 04/08/25 13:41> General Chief complaint: Wound/Laceration Stated complaint: fever, inf back of L leg, inf on abd Time Seen by Provider: 04/08/25 12:25 Mode of Arrival: Ambulatory Source of Information: Patient and Spouse Description of Symptoms (Recalled from ER Triage Doc. by RN): patient presents for a boil/cyst in her left groin and under her left buttock. patient states she has a history of hydranitis and this current boil/cyst has been there for 2 weeks. she states it is painful all the time, and she has had fevers up to 102 at home daily. History of Present Illness HPI narrative: 34-year-old female presents to the ED today with complaint of fever of 102 at home. She also has a boil in her left inguinal area. This is draining clear fluid. She also has 1 on the back of her left thigh. She does have hidr adenitis suppurativa. She sees dermatology for this. She used to take Humira for this now she is on Dupixent and another agent. She has had these boils for 2 weeks. She has had some cold cough symptoms because her immune system is diminished due to her medications. Related Data Home Medications ?Medication ?Instructions ?Recorded ?Confirmed chlorhexidine gluconate 4 % topical 02/02/24 03/19/25 topical liquid (Antiseptic Skin Cleanser (chlorhexidine)) bimekizumab-bkzx 320 mg/2 mL 320 mg SQ Q2W 12/05/24 subcutaneous auto-injector diphenhydramine HCl 12.5 mg/5 mL 12.5 mg PO PRN 03/19/25 oral liquid (Children's Allergy (diphenhydramine)) pimecrolimus 1 % topical cream applic topical 03/07/25 03/19/25 Previous Rx's ?Medication ?Instructions ?Recorded ibuprofen 800 mg tablet 800 mg PO TID PRN pain #90 t abs 08/31/24 clobetasol 0.05 % topical ointment 1 applic topical BI D 2 weeks #30 09/21/24 grams sertraline 150 mg capsule 150 mg PO DAILY #30 caps 03/03 cholecalciferol (vitamin D3) 50 50 mcg PO DAILY #90 ca ps 11/01/24 mcg (2,000 unit) capsule ropinirole 0.5 mg tablet 0.5 mg PO HS #30 tabs spironolactone 50 mg tablet 50 mg PO BID 30 days #60 t abs 11/01/24 betamethasone dipropionate 0.05 % 1 applic topical BID #45 grams 12/05/24 topical cream albuterol sulfate 90 mcg/actuation See Rx Instructions .Route 02/01/25 aerosol inhaler (Ventolin HFA) .COMPLEX #18 grams acetaminophen 650 mg 650 mg PO Q8H PRN pain #30 t abs 04/08/25 tablet,extended release clindamycin HCl 300 mg capsule 300 mg PO BID 7 days #1 4 caps 04/08/25 (Cleocin HCl) ketorolac 10 mg tablet 10 mg PO Q8H 5 days #15 tabs 04/08/25 Allergies Allergy/AdvReac Type Severity Reaction Status Date / Time propranolol (From INDERAL LA) Allergy Mild Unknown Verified 03/19/25 11:19 allergy reaction latex (LATEX) Allergy Unknown Unknown Verified 03/19/25 11:19 allergy reaction nickel (NICKEL) Allergy Unknown Unknown Verified 03/19/25 11:19 allergy reaction topiramate (TOPIRAMATE) Allergy Unknown I-HIVES Verified 03/19/25 11:19 tramadol (TRAMADOL) Allergy Unknown Unknown Verified 03/19/25 11:19 allergy reaction amoxicillin Allergy Unknown Verified 03/19/25 11:19 allergy reaction Penicillins Allergy Unknown Verified 03/19/25 11:19 allergy reaction PFSH <Roro Espitia (ED), FENCE INSTALLER - Last Filed: 04/08/25 13:41> [facility] Disclaimer: The information contained in this section may have been updated after the patient was seen, as this information can be updated by other users. Medical History Female hirsutism Abnormal uterine bleeding Headache Otitis externa Expiratory wheezing CAP (community acquired pneumonia) Cough Tobacco abuse counseling URI (upper respiratory infection) URI with cough and congestion Otitis media Acute bronchopneumonia Given heavy smoking history and lung exam abnormalities will initiate antibiotics as noted. Hydradenitis Lupus Anxiety Depression Migraines Perianal abscess Mild/early left medial buttock/perianal abscess versus hidradenitis Exposure to COVID-19 virus Upper respiratory infection, viral Bronchitis Strep throat Abscess of left axilla Low back pain Needle stick injury of finger of left hand Sinusitis Contact dermatitis Surgical History Hydradenitis H/O skin graft History of cholecystectomy History of endometrial ablation History of tonsillectomy H/O tubal ligation History of Family History Other Coronary artery disease Diabetes Narcolepsy Parkinson disease Social History Smoking Status: Current every day smoker tobacco type: e-cigarettes second hand exposure: Yes alcohol intake: never substance use type: denies use current occupational status: unemployed Travel in the last 8 weeks?: None household members: family housing: house current occupation: [employer] current occupational exposures/hazards: No caffeine: Yes Have you lived/traveled outside US in past 30 days?: No Contact w/someone who lives/traveled outside US past 30 days?: No Exposure to someone with infectious disease in past 14 days?: No Do you have a fever (greater than 100.4 F or 38 C)?: No Have you tested positive for COVID-19?: No Exposed to someone with COVID-19 in past 14 days?: No Do you have a sore throat?: No Do you have a cough?: No Do you have any weakness?: No Do you have any diarrhea?: No Are you experiencing any unusual bleeding?: No Do you have any muscle aches/pain?: No Do you have any abdominal pain?: No Are you experiencing loss of taste or smell?: No Other Medical History Have you received the Flu Vaccine for this season: Yes Have you received the Pneumonia Vaccine: No <Roro Espitia (ED), FENCE INSTALLER - Last Filed: 04/08/25 13:41> ROS Obtained: Yes Systems reviewed as appropriate & no additional complaints except as documented Constitutional Constitutional: Reports as per HPI Physical Exam <Roro Espitia (ED), FENCE INSTALLER - Last Filed: 04/08/25 13:41> General General appearance: alert Head Head exam: atraumatic and normocephalic Eye Eye exam: Present PERRL and EOMI ENT ENT exam: Present normal oropharynx and mucous membranes moist Neck Neck exam: Present full ROM and trachea midline Respiratory Respiratory exam: Present normal lung sounds bilaterally Cardiovascular Cardiovascular exam: Present normal rhythm, normal heart sounds, +S1 and +S2 Extremities Exam Extremities exam: Present full ROM and normal capillary refill Neurological Exam Neurological exam: Present alert and oriented X3 Skin Skin exam: Present warm, dry and other (Left inguinal with boil present area is open and draining clear fluid, area on back of left thigh with erythema, induration) Medical Decision Making <Roro Espitia (ED), FENCE INSTALLER - Last Filed: 04/08/25 13:41> Medical Records Screening: Per USPSTF and CDC recommendations, given the prevalence of disease in our region, it is our hospital?s policy to screen for HIV and viral Hepatitis for all patients aged 18 and over and those with ongoing risk factors. Edgar Inquiry Pt receiving controlled substance: No Edgar was queried for this patient: No Vital Signs: 04/08/25 12:25 04/08/25 13:48 04/08/25 13:51 Temperature 98.2 F 98.1 F Temperature Source Oral Oral Pulse Rate 80 79 Pulse Rate [Right Radial] 83 Respiratory Rate 18 16 Blood Pressure 128/85 128/85 Blood Pressure [Right Arm] 115/73 Blood Pressure Mean [Right Arm] 87 Blood Pressure Source Automatic Cuff Blood Pressure Source [Right Arm] Automatic Cuff Blood Pressure Position [Right Arm] Sitting 02 Sat by Pulse Oximetry 100 93 L Oxygen Delivery Method Room Air Room Air Room Air Lab Data Lab Results 04/08/25 12:32: Urine Color Yellow, Urine Appearance Slightly cloudy, Urine pH 6.5, Ur Specific Gilbert 1.020, Urine Protein Negative, Urine Glucose (UA) Negative, Urine Ketones Negative, Urine Blood Negative, Urine Nitrate Negative, Urine Bilirubin Negative, Urine Urobilinogen 0.2, Ur Leukocyte Esterase Negative, Urine RBC None, Urine WBC 3-5, Ur Squamous Epith Cells 5-10, Urine Bacteria 1+ 04/08/25 12:57: SARS-CoV-2 (PCR) Detected A, Influenza A Untype (PCR) Not detected, Influenza Type B (PCR) Not detected Orders (Tests/Meds): ED MEDICATIONS Discontinued Medications Generic Name Dose Route Start Last Admin Trade Name Angelica PRN Reason Stop Dose Admin Acetaminophen 1,000 mg 04/08/25 12:51 04/08/25 13:11 Acetaminophen 1,000mg/100ml Vial IV 04/08/25 12:52 1,000 mg ONCE ONE Administration Ketorolac Tromethamine 30 mg 04/08/25 12:51 04/08/25 13:11 Ketorolac 30mg/Ml Vial IV 04/08/25 12:52 30 mg ONCE ONE Administration ORDERS Category Date Time Status Rapid PCR Covid and Flu A/B Stat Lab 04/08/25 12:57 Completed UA [Urinalysis and Microscopic] Stat Lab 04/08/25 12:32 Completed Medical Decision Narrative: patient is a 34-year-old female presenting to the emergency department for evaluation of boils and fever. Patient is hemodynamically stable and nontoxic- appearing upon arrival, afebrile. Differential diagnosis includes hidradenitis suppurativa flare, viral illness among others. Will give patient tylenol and motrin for pain and fever. Will swab for covid/flu. Will treat with clindamycin as she cannot tolerate doxy. Patient is COVID-positive. Patient will treat with fluids, rest, Tylenol Motrin at home. We will give her clinda for the ED hidradenitis suppurativa. Patient will be discharged. Safe for discharge home. <Dewey Ybarra MD - Last Filed: 04/08/25 18:01> Vital Signs: 04/08/25 12:25 04/08/25 13:48 04/08/25 13:51 Temperature 98.2 F 98.1 F Temperature Source Oral Oral Pulse Rate 80 79 Pulse Rate [Right Radial] 83 Respiratory Rate 18 16 Blood Pressure 128/85 128/85 Blood Pressure [Right Arm] 115/73 Blood Pressure Mean [Right Arm] 87 Blood Pressure Source Automatic Cuff Blood Pressure Source [Right Arm] Automatic Cuff Blood Pressure Position [Right Arm] Sitting 02 Sat by Pulse Oximetry 100 93 L Oxygen Delivery Method Room Air Room Air Room Air Lab Data Lab Results 04/08/25 12:32: Urine Color Yellow, Urine Appearance Slightly cloudy, Urine pH 6.5, Ur Specific Gilbert 1.020, Urine Protein Negative, Urine Glucose (UA) Negative, Urine Ketones Negative, Urine Blood Negative, Urine Nitrate Negative, Urine Bilirubin Negative, Urine Urobilinogen 0.2, Ur Leukocyte Esterase Negative, Urine RBC None, Urine WBC 3-5, Ur Squamous Epith Cells 5-10, Urine Bacteria 1+ 04/08/25 12:57: SARS-CoV-2 (PCR) Detected A, Influenza A Untype (PCR) Not detected, Influenza Type B (PCR) Not detected Orders (Tests/Meds): ED MEDICATIONS Discontinued Medications Generic Name Dose Route Start Last Admin Trade Name Angelica PRN Reason Stop Dose Admin Acetaminophen 1,000 mg 04/08/25 12:51 04/08/25 13:11 Acetaminophen 1,000mg/100ml Vial IV 04/08/25 12:52 1,000 mg ONCE ONE Administration Ketorolac Tromethamine 30 mg 04/08/25 12:51 04/08/25 13:11 Ketorolac 30mg/Ml Vial IV 04/08/25 12:52 30 mg ONCE ONE Administration ORDERS Category Date Time Status Rapid PCR Covid and Flu A/B Stat Lab 04/08/25 12:57 Completed UA [Urinalysis and Microscopic] Stat Lab 04/08/25 12:32 Completed Medical Decision Narrative: patient is a 34-year-old female presenting to the emergency department for evaluation of boils and fever. Patient is hemodynamically stable and nontoxic- appearing upon arrival, afebrile. Differential diagnosis includes hidradenitis suppurativa flare, viral illness among others. Will give patient tylenol and motrin for pain and fever. Will swab for covid/flu. Will treat with clindamycin as she cannot tolerate doxy. Patient is COVID-positive. Patient will treat with fluids, rest, Tylenol Motrin at home. We will give her clinda for the ED hidradenitis suppurativa. Patient will be discharged. Safe for discharge home. I was consulted by the JOSE, and we discusssed the complexity of the problems being adressed. I approved the treatment and management plan for this patient's care in the Emergency Department, thus performing a substantive portion of the medical decision making. Dewey Ybarra MD Critical Care <Roro Espitia (ED), FENCE INSTALLER - Last Filed: 04/08/25 13:41> Critical Care Time Critical Care Time: No
--- OUTSIDE RECORDS SUMMARY | 2025-04-08 12:38 | XMS_ITS | Clinical Summary ---
Author Organization [facility] Address [address] [place] [address] Care Team Providers Care Tailer Off Name Role Phone Unavailable Primary Care Provider Unavailabl e Social History Tobacco Use Types Packs/Day Years Used Date Smoking Tobacco: Never Assessed Abuse Screen Answer Date Recorded Unsafe at Home or Work/School Not on file Feels Threatened by Someone? Not on file 03/2023 Does Anyone Keep You from Co ntacting Others or Doint Things Outside the Home? Not on file 02/17/2023 Physical Sign of Abuse Present Not on file 1 Housing Stability Answer Date Recorded Current Living Arrangements Not on file 02/07 Potentially Unsafe Housing Conditions Not on maggie e 02/17/2023 Family and Community Support Answer Geraldo e Recorded Help with Day-to-Day Activities Not on file 02/17/2023 Lonely or Isolated Not on file 02/17/2023 Employment Answer Date Recorded Do you want help finding or keeping work or a rosie b? Not on file 02/17/2023 Disabilities Answer Date Recorded Concentrating, Remembering, or Making Decisions Difficulty Not on file 02/17/2023 Doing Errands Independently Difficulty Not on fi le 02/17/2023 Education Answer Date Recorded Help with school or training? Not on file Preferred Language Not on file 02/17/2023 Comments Unknown Sex and Gender Information Value Date Recorded Sex Assigned at Not on file Legal Sex Female 1:34 PM EDT Gender Identity Not on file Sexual Orientation Not on file Plan of Treatment Health Maintenance Due Date Last Done Comments ANNUAL PHYSICAL 1991 Annual Gynecologic Pelvic an d Breast Exam 1991 HEPATITIS C SCREENING 1991 TDAP/TD VACCINES (1 - Tdap) 12/02/2010 INFLUENZA VACCINE 12/08/2024 Pneumococcal Vaccine 0-49 Aged Out No longer eligible based on patient's age to complete this topic
--- OUTSIDE RECORDS SUMMARY | 2025-04-08 12:38 | XMS_ITS | Clinical Summary ---
Author Organization [facility] Address [address] [place] [address] Care Team Providers Care Fountain Vending Mechanic Name Role Phone Bakari Faykelly White APRN Primary Care Provider [phone] Allergies Active Allergy Reactions Criticality Noted Date Comments Clindamycin Hives,Itching Medium 03/10/2021 Doxycycline Hives Medium 02/24/2021 Penicillins Hives Medium 10/21/2020 tolerated cefazolin 03/04 admission Ketorolac Tromethamine Hives Medium 10/21/2020 Tramadol Hives Medium 10/21/2020 Medications naproxen (Naprosyn) 500 MG tablet Take 500 mg by mouth 2 (two) times a day. 05/09/2020 Active ibuprofen 800 MG tablet 08/17/2020 Active acetaminophen (Tylenol) 325 MG tablet TAKE 2 TABLETS BY MOUTH EVERY SIX HOURS NEEDED 05/09/2020 Active Blood Glucose Monitoring Suppl (ONE TOUCH ULTRA 2) w/Device kit device kit 08/17/2020 Active OneTouch Ultra test strip 08/17/2020 Active Lancets (OneTouch Delica Plus [id number]) misc 08/17/2020 Act alva Active Problems Problem Noted Date Diagnosed Date Diabetes mellitus, type 2 02/25/2021 Hidradenitis axillaris 10/21/2020 Resolved Problems Problem Noted Date Diagnosed Date Resolved Date PONV (postoperative nausea and vomiting) 02/25/2021 01/28/2025 Rash 10/21/2020 01/28/2025 Family History Medical History Relation Name Comments Diabetes Maternal Grandmother Relation Name Status Comments Maternal Grandmother Social History Tobacco Use Types Packs/Day Years Used Date Smoking Tobacco: Former Cigarettes Smokeless Tobacco: Never Tobacco Cessation:Ready to Q uit: Yes; Counseling Given: Yes Alcohol Use Standard Drinks/Week Comments Not Currently 0 (1 standard drink = 0.6 oz pur e alcohol) Comments No Sex and Gender Information Value Date Recorded Sex Assigned at Female 02/07/2021 8:08 PM EDT Legal Sex Female 7:13 PM EDT Gender Identity Female 02/07/2021 8:08 PM EDT Sexual Orientation Straight 02/25/2021 8: 29 AM EDT Last Filed Vital Signs Vital Sign Reading Time Taken Comments Blood Pressure 123/81 03/24/2021 10:02 AM EST Pulse 104 03/24/2021 10:02 AM EST Temperature 36.3 C (97.3 F) 03/24/2021 10:02 AM EST Respiratory Rate 18 03/04/2021 10:30 AM EDT Oxygen Saturation 97% 03/24/2021 10:02 AM EST Inhaled Oxygen Concentration - - Weight 117 kg (258 lb 12.8 oz) 03/24/2021 10:02 AM EST Height 152.4 cm (5') 03/24/2021 10:02 AM EST Body Mass Index 50.54 03/24/2021 10:02 AM EST Plan of Treatment Health Maintenance Due Date Last Done Comments [facility]-Depression Screening 1991 [facility]-/Child/Adol SDOH Screenings 1991 [facility]-IPV Vaccines (2 of 3 - 4-dose series) 02/10/1996 01/13/1996 [facility]-Varicella Vaccines (1 of 2 - 13+ 2-dose series) 12/02/2004 HPV Vaccines (2 - 3-dose series) 10/31/2008 10/03/2008 [facility]- SDOH Screenings 12/02/2009 [facility]-Adult SDOH Screenings 12/02/2009 [facility]-Pap Smear 12/02/2012 [facility]-Cervical Cancer Screening 12/02/2021 [facility]-HPV/Cotest 12/02/2021 [id number] Vaccine ( - season) 2025 [facility]-Influenza Vaccine (#1) 01/08/202502/06, 02/20/2014 [facility]-DTaP,Tdap,and Td Vaccines (3 - Td or Tdap) 07/01/2029 07/01/2019, 01/13/1996 [facility]-Zoster Vaccines (1 of 2) 12/02/2041 [facility]-Hepatitis B Vaccines Completed 997, 02/16/1996, 01/13/1996 [facility]-HIB Vaccines Aged Out No longer e ligible based on patient's age to complete this topic [facility]-Hepatitis A Vaccines Aged Out No longer eligible based on patient's age to complete this topic [facility]-Pneumococcal Vaccine: Pediatrics (0 to 5 Years) and At-Risk Patients (6 to 49 Years) Aged Out No longer eligible b ased on patient's age to complete this topic [facility]-Rotavirus Vaccines Aged Out No lo nger eligible based on patient's age to complete this topic Medical Devices Implanted Type Area Admissions Representative Device Identifier Shelf Expiration Date Model / Serial / Lot Skin Meshed 1/2 Sq Ft - [id number] Implanted:02/07 by Sis Walker MD at [facility] (Quantity not on file) [id number] 06/02/2025 [facility] [id number] Skin Meshed 1/2 Sq Ft - [id number] - [id number] Implanted:Qty: 1 on 02/26/2021 by Sis Walker MD at [facility] Right: [employer] [place] [id number] 06/02/2025 [facility] [id number] Insurance [employer] Care Teams Fountain Vending Mechanic Relationship Specialty Start Date End Date Fay Villegas APRN [address] [place] [address] PCP - General 03/24/21
[2025-04-08 12:41] LABS: Microscopic, Urine URINE MICROSCOPIC (MICROSCOPIC)
[2025-04-08 12:42] LABS: Bilirubin,Urine Negative (Negative); Color,Urine YELLOW (Yellow); Glucose,Urine (UA) Negative (Negative); Ketones,Urine Negative (Negative); Leukocyte Esterase,Urine Negative (Negative); PH,Urine 6.5 (5.0-8.5); Protein,Urine Negative (Negative); Specific Gravity, Urine 1.020 (1.005-1.030); Urobilinogen,Urine 0.2 EU/dl (0.2)
[2025-04-08 12:59] LABS: Bacteria,Urine 1+ /lpf
[2025-04-08 13:07] LABS: Influenza A, PCR Not Detected (NotDetected); Influenza B, PCR Not Detected (NotDetected)
[2025-04-08] MEDS: ACETAMINOPHEN 1,000MG/100ML VIAL 1000 MG IV (13:11)
[2025-04-08] MEDS: KETOROLAC 30MG/ML VIAL 30 MG IV (13:11)
[2025-04-08 13:33] LABS: Coronavirus 19, PCR Detected (NotDetected)
[2025-04-08 13:48] VITALS: BP 128/85; PULSE 80; RESP 16; TEMP 36.7; O2SAT 94
[2025-04-08 13:51] VITALS: BP 128/85; PULSE 79; O2SAT 93
== END 2025-04-08 13:55 | disposition home or self-care (01) ==
PROVIDERS: Nurse Practitioner; Emergency Provider Student in an Organized Health Care Education/Training Program; PCP Family Medicine
DX: U07.1 COVID-19 (principal); R50.9 Fever, unspecified; L73.2 Hidradenitis suppurativa; F17.290 Nicotine dependence, other tobacco product, uncomplicated
CPT/HCPCS: 81001; 87636; 96374; 96375; 99284; J0131; J1885